=== PATIENT | male | born 1940 | race Caucasian/White ===

== ENCOUNTER 2019-01-04 17:16 | Inpatient (IN) | payer OTHER ==
[~2019-01-04] VITALS: Ht 185.4 cm; Wt 138.2 kg
[~2019-01-04 17:16] MED LIST: ALBU90OI INH; ALBU90OI6 INH; ALLO300 PO; ARTIFICIAL TEA1 EACH BOTHEYES; ASPI81CH PO; ATEN25 PO; ATOR10 PO; AZIT250 PO; Aspir 8181 MG PO; Bactrim Ds Tab1 EACH PO; CLOM50A PO; COLCHICINE0.6 MG PO; CYCL10; Coumadin3 MG PO; Coumadin6 MG PO; Cyclobenzaprine5 MG PO; ERGO400 PO; FINA5 PO; FLUSAL2505 IH; FURO20 PO; GLIP10ER PO; GLIP5 PO; Glucosamine H1500 MG PO; IBUP400 PO; INSUGL100V; ISOMON60ER PO; Isosorbide Mono60 MG PO; LEVFLO500 PO; LEVSOD100 PO; LEVSOD112 PO; LISI5 PO; Lantus100 UNIT/1 SQ; METF500 PO; METO50ER PO; MULVITB PO; MULVITMIND PO; OMEP20ER PO; OMEP40CA12 PO; OXYACE5T PO; PRED20 PO; Percocet 5-3251 EACH PO; Prilosec Otc20 MG; STIOLTO RESPIMAT4 GM INH; Sulfamethoxazo1 EAC4 PO; TAMS.4ER PO; TAMSULOSIN HCL0.4 MG PO; TIOT18 IH; TORSE20 PO; Vitamin C100 M1 PO; WARF4 PO; WARF6 PO; XARALTO
[2019-01-04] MEDS ORDERED: FISH OIL 1,001000 MG PO (19:02)
[2019-01-04] MEDS ORDERED: DULERA 200 MCG/13 GM INH (19:02)
[2019-01-04] MEDS ORDERED: Fergon240 M1 PO (19:03)
[2019-01-04 20:10] LABS: Percent Saturation 8.3 % (20.0-50.0)
[2019-01-04] MEDS ORDERED: MUSE500 MCG UR (20:53)
[2019-01-04] MEDS ORDERED: DOCU100 PO (20:54)
[2019-01-04] MEDS ORDERED: EQ GENTLE30 ML BOTHEYES (20:57)
[2019-01-04] MEDS ORDERED: WARF6 PO (21:02)
[2019-01-05 02:06] LABS: BASOPHILS ABSOLUTE AUTO 0.06 K/mm3 (0.00-0.23); BASOPHILS PERCENT AUTO 1 % (0-2); EOSINOPHILS ABSOLUTE AUTO 0.25 K/mm3 (0.00-0.68); EOSINOPHILS PERCENT AUTO 3 % (0-6); Hematocrit 24.8 % (37.0-53.0); Hemoglobin 8.1 g/dL (13.5-17.5); IMMATURE GRAN ABSOLUTE AUTO 0.03 K/mm3 (0.00-0.10); IMMATURE GRAN PERCENT AUTO 0 % (0-1); LYMPHOCYTES ABSOLUTE AUTO 0.75 K/mm3 (0.84-5.20); LYMPHOCYTES PERCENT AUTO 9 % (21-46); MONOCYTES ABSOLUTE AUTO 0.58 K/mm3 (0.16-1.47); MONOCYTES PERCENT AUTO 7 % (4-13); Mean Corpuscular HGB 29.1 pg (26.0-34.0); Mean Corpuscular HGB Conc 32.7 g/dL (31.5-36.5); Mean Corpuscular Volume 89 fL (80-100); Mean Platelet Volume 11.3 fL (9.1-12.4); NEUTROPHILS ABSOLUTE AUTO 7.07 K/mm3 (1.96-9.15); NEUTROPHILS PERCENT AUTO 81 % (41-73); Platelet Count 124 K/mm3 (150-400); RDW Standard Deviation 66.1 fL (35.1-46.3); Red Blood Cell Count 2.78 M/mm3 (4.30-5.90); White Blood Cell Count 8.74 K/mm3 (4.00-11.30)
[2019-01-05 02:22] LABS: Bun/Creatinine Ratio 20.3 (12.0-20.0); Calcium, Blood 8.4 mg/dL (8.5-10.1); Creatinine, Blood 4.97 mg/dL (0.60-1.20); Potassium, Blood 4.3 mmol/L (3.5-5.5)
[2019-01-05 02:34] LABS: Source, Urine Clean Catch
[2019-01-05 02:40] LABS: Bilirubin, Urine Neg (Neg); Blood, Urine Neg (Neg); Glucose Qualitative, Urine Neg (Neg); Ketones, Urine Neg (Neg); Leukocyte Esterase, Urine Neg (Neg); Nitrite, Urine Neg (Neg); Protein, Urine 1+ (Neg); Specific Gravity, Urine 1.015 (1.003-1.022); Urobilinogen, Urine NORM (Normal)
[2019-01-05 02:41] LABS: Appearance, Urine Clear (Clear); Color, Urine Yellow (P-Yellow)
--- NOTE | 2019-01-05 05:54 | NUR ---
*SHIFT SUMMARY* PATIENT ARRIVED TO ROOM FROM ER VIA GURNEY. PATIENT STOOD AND TRANSFERED TO BED. PATIENT ON ROOM AIR. PT PLACED ON TELEMETRY. RHYTHM- AFIB IN THE 70'S PER MACHINE TRACER. PATIENT IS ALERT AND ORIENTED. SLEPT AT BEDSIDE. PLAN IS FOR PT TO HAVE ULTRASOUND/ ECHO/ AND CHEST XRAY TODAY. CONSULT CALLED FOR DR. SALINAS. NO C/O PAIN THROUGHOUT THE NIGHT. PT BROUGHT HOME C-PAP. CONTINUOUS PULSE OXIMETER ON. SCD'S ON PT. VITAL SIGNS STABLE. PT IS ACHS WITH SLIDING SCALE COVERAGE. PT STATES HE DOES NOT USE INSULIN AT HOME TO CORRECT BLOOD SUGARS. SOB WITH EXERTION IS NOTED. URINE SAMPLE SENT FOR [facility].
[2019-01-05 08:19] LABS: International Normalized Ratio 3.18; Prothrombin Time Results 30.3 Sec (9.7-11.5)
--- NOTE | 2019-01-05 11:22 | NUR ---
ECHOCARDIOGRAM COMPLETED
[2019-01-05 14:48] LABS: Adenovirus Not Detected (NOT DETECT); Bordetella pertussis Not Detected (NOT DETECT); Chlamydophila pneumoniae Not Detected (NOT DETECT); Coronavirus 229E Not Detected (NOT DETECT); Coronavirus HKU1 Not Detected (NOT DETECT); Coronavirus NL63 Not Detected (NOT DETECT); Coronavirus OC43 Not Detected (NOT DETECT); Human Metapneumovirus Not Detected (NOT DETECT); Human Rhinovirus/Enterovirus Not Detected (NOT DETECT); Influenza A Not Detected (NOT DETECT); Influenza A/2009-H1 Not Detected (NOT DETECT); Influenza A/H1 Not Detected (NOT DETECT); Influenza A/H3 Not Detected (NOT DETECT); Influenza B Not Detected (NOT DETECT); Mycoplasma pneumoniae Not Detected (NOT DETECT); Parainfluenza Virus 1 Not Detected (NOT DETECT); Parainfluenza Virus 2 Not Detected (NOT DETECT); Parainfluenza Virus 3 Not Detected (NOT DETECT); Parainfluenza Virus 4 Not Detected (NOT DETECT); Respiratory Syncytial Virus Not Detected (NOT DETECT)
--- NOTE | 2019-01-05 15:55 | NUR ---
SHIFT SUMMARY PT HAS HAD NO ACUTE CHANGES THIS SHIFT, MEDICATED 1X FOR HEADACHE, NO OTHER COMPLAINTS. RT PLACED PT ON 2L 02 D/T PT REPORTING SOB AND SATS REMAINING ABOUT 90% ON RA. PT BEDRESTING, WILL CONT TO MONITOR UNTIL REPORT GIVEN TO NOC RN.
--- NOTE | 2019-01-06 05:32 | NUR ---
*SHIFT SUMMARY* PATIENT IS ALERT AND ORIENTED. NO COMPLAINTS OF PAIN OR DISCOMFORT. VITAL SIGNS STABLE. TELE ON. C-PAP USED AT NIGHT. SLEPT AT BEDSIDE. INDEPENDENT IN THE ROOM. NO CHANGES THROUGHOUT THE NIGHT.
[2019-01-06 05:49] LABS: BASOPHILS ABSOLUTE AUTO 0.04 K/mm3 (0.00-0.23); BASOPHILS PERCENT AUTO 0 % (0-2); EOSINOPHILS ABSOLUTE AUTO 0.23 K/mm3 (0.00-0.68); EOSINOPHILS PERCENT AUTO 3 % (0-6); Hematocrit 24.6 % (37.0-53.0); Hemoglobin 7.7 g/dL (13.5-17.5); IMMATURE GRAN ABSOLUTE AUTO 0.03 K/mm3 (0.00-0.10); IMMATURE GRAN PERCENT AUTO 0 % (0-1); LYMPHOCYTES ABSOLUTE AUTO 0.61 K/mm3 (0.84-5.20); LYMPHOCYTES PERCENT AUTO 7 % (21-46); MONOCYTES ABSOLUTE AUTO 0.56 K/mm3 (0.16-1.47); MONOCYTES PERCENT AUTO 6 % (4-13); Mean Corpuscular HGB 28.9 pg (26.0-34.0); Mean Corpuscular HGB Conc 31.3 g/dL (31.5-36.5); Mean Platelet Volume 10.9 fL (9.1-12.4); NEUTROPHILS ABSOLUTE AUTO 7.58 K/mm3 (1.96-9.15); NEUTROPHILS PERCENT AUTO 84 % (41-73); Platelet Count 117 K/mm3 (150-400); RDW Coefficient Variation 20.4 % (11.7-14.2); RDW Standard Deviation 68.2 fL (35.1-46.3); Red Blood Cell Count 2.66 M/mm3 (4.30-5.90); White Blood Cell Count 9.05 K/mm3 (4.00-11.30)
[2019-01-06 05:59] LABS: Mean Corpuscular Volume 93 fL (80-100)
[2019-01-06 06:12] LABS: Albumin, Blood 2.9 g/dL (3.4-5.0); Anion Gap 11 mmol/L (6-16); Blood Urea Nitrogen 101 mg/dL (8-24); CO2, Blood 21 mmol/L (21-32); CPK Creatine Kinase 30 U/L (39-308); Calcium, Blood 8.8 mg/dL (8.5-10.1); Chloride, Blood 108 mmol/L (98-108); Creatinine, Blood 5.06 mg/dL (0.60-1.20); Glomerular Filtration Rate 12 (60-); Glucose, Blood 112 mg/dL (70-99); Phosphorus, Blood 5.7 mg/dL (2.5-4.9); Potassium, Blood 4.6 mmol/L (3.5-5.5); Sodium, Blood 140 mmol/L (136-145)
[2019-01-06 13:40] LABS: International Normalized Ratio 3.14
--- NOTE | 2019-01-06 15:04 | NUR ---
Patient gave permission for SN Ritu Aguirre to work with him on 01/07/19
--- NOTE | 2019-01-06 18:18 | NUR ---
SHIFT SUMMARY SURGICAL CONSULT PLACED FOR PERMA CATH PLACEMENT. PATIENT AWARE OF NEED FOR DIALYSIS. ABLE TO MAKE HIS NEEDS KNOWN. CONTINUES TO REQUIRE O2 DURING THE DAY. AND ANIMALS AT BEDSIDE.
--- NOTE | 2019-01-06 22:42 | NUR ---
2001 ADL'S: 3 DOGS SENT HOME WIHT FAMILY FOR NOC. PT UP TO RECLINER AND PT'S HELPS HIM TO COMPLETE BEDBATH WHILE SAND WHEELER COMPLETES LINEN CHANGES. ONCE PERSONAL CARE HAS BEEN COMPLETED PT REPOSITIONS SELF BACK IN BED WITH SBA FROM STAFF. RN SHAVES CHEST WITH SURGICAL CLIPPERS AND COMPLETES CHLORHEXIDINE WIPES BATH TO CHEST, NECK, SHOULDERS AND ARMS IN ANTICIPATION OF PERMACATH PLACEMENT ON 01/07/19. HOUSEKEEPING CALLED OT ROOM TO COMPLETE DAILY CLEAN AND MOP WELL.
[2019-01-07 05:43] LABS: BASOPHILS ABSOLUTE AUTO 0.05 K/mm3 (0.00-0.23); BASOPHILS PERCENT AUTO 1 % (0-2); EOSINOPHILS ABSOLUTE AUTO 0.42 K/mm3 (0.00-0.68); EOSINOPHILS PERCENT AUTO 5 % (0-6); Hematocrit 25.1 % (37.0-53.0); Hemoglobin 8.1 g/dL (13.5-17.5); IMMATURE GRAN ABSOLUTE AUTO 0.05 K/mm3 (0.00-0.10); IMMATURE GRAN PERCENT AUTO 1 % (0-1); LYMPHOCYTES ABSOLUTE AUTO 0.88 K/mm3 (0.84-5.20); LYMPHOCYTES PERCENT AUTO 10 % (21-46); MONOCYTES ABSOLUTE AUTO 0.72 K/mm3 (0.16-1.47); MONOCYTES PERCENT AUTO 8 % (4-13); Mean Corpuscular HGB 28.8 pg (26.0-34.0); Mean Corpuscular HGB Conc 32.3 g/dL (31.5-36.5); Mean Platelet Volume 10.7 fL (9.1-12.4); NEUTROPHILS ABSOLUTE AUTO 6.86 K/mm3 (1.96-9.15); NEUTROPHILS PERCENT AUTO 76 % (41-73); NRBC ABSOLUTE 0.02 K/mm3 (0.00-0.02); NRBC Auto 0.2 /100 WBC (0.0-0.2); Platelet Count 138 K/mm3 (150-400); RDW Coefficient Variation 20.3 % (11.7-14.2); RDW Standard Deviation 65.6 fL (35.1-46.3); Red Blood Cell Count 2.81 M/mm3 (4.30-5.90); White Blood Cell Count 8.98 K/mm3 (4.00-11.30)
--- NOTE | 2019-01-07 06:00 | NUR ---
SUMMARY: ADMIT DAY 4 ACUTE KIDNEY INJURY ON HOSPITALIST SERVICE FROM [facility]. VSS, AFEBRILE, MAINTAINS SPO2 >90% ON 2L O2 VIA NC WITH HOME CPAP @ NOC. ADL'S COMPLETED. ANTICIPATE SURGICAL CONSULT TODAY AND PROBABLE PERMACATH PLACEMENT BY DR. YANG. CHEST AND TORSO PREPPED FOR SURGERY IN ANTICIPATION. PT ENCOURAGED TO EAT LIGHT BREAKFAST IN CASE OF SURGICAL PROCEDURE LATER THIS DAY. REMAINS AT BEDSIDE.
[2019-01-07 06:01] LABS: Anion Gap 11 mmol/L (6-16); Blood Urea Nitrogen 100 mg/dL (8-24); Bun/Creatinine Ratio 20.6 (12.0-20.0); CO2, Blood 21 mmol/L (21-32); Calcium, Blood 8.6 mg/dL (8.5-10.1); Chloride, Blood 106 mmol/L (98-108); Creatinine, Blood 4.85 mg/dL (0.60-1.20); Glomerular Filtration Rate 12 (60-); Glucose, Blood 92 mg/dL (70-99); Mean Corpuscular Volume 89 fL (80-100); Phosphorus, Blood 5.6 mg/dL (2.5-4.9); Potassium, Blood 4.3 mmol/L (3.5-5.5); Sodium, Blood 138 mmol/L (136-145)
[2019-01-07 06:03] LABS: International Normalized Ratio 1.75; Prothrombin Time Results 17.6 Sec (9.7-11.5)
[2019-01-07 07:13] LABS: HBSAG SCREEN Negative (Negative); HEP B CORE AB, TOT Negative (Negative); HEP C VIRUS AB <0.1 (0.0-0.9)
--- NOTE | 2019-01-07 12:58 | NUR ---
PATIENT A&O X4. RN MEDICATED X1 FOR A HEADACHE. PATIENT DENIES ANY SOB OR NAUSEA. AT THE BEDSIDE. NO ACUTE CHANGES. RN GAVE REPORT TO NURSE MARTINEZ.
--- NOTE | 2019-01-07 15:38 | NUR ---
SHIFT SUMMARY PATIENT IS EAGER FOR SURGERY ON 01/08. NPO AT MIDNIGHT. NO ACUTE ISSUES NOTED.
--- NOTE | 2019-01-08 04:32 | NUR ---
NOC SHIFT SUMMARY PT HAS BEEN COOPERATIVE WITH CARE THIS NIGHT. AAOX4, RESP EVEN AND UNLABORED. VSS. HE HAS BEEN NPO SINCE MIDNIGHT. CURRENTLY SLEEPING. NOT ACUTE CHANGES SEEN. APPEARS IN NO ACUTE DISTRESS. WILL CONTINUE TO MONITOR.
[2019-01-08 05:32] LABS: BASOPHILS ABSOLUTE AUTO 0.07 K/mm3 (0.00-0.23); BASOPHILS PERCENT AUTO 1 % (0-2); EOSINOPHILS ABSOLUTE AUTO 0.39 K/mm3 (0.00-0.68); EOSINOPHILS PERCENT AUTO 4 % (0-6); Hematocrit 23.7 % (37.0-53.0); Hemoglobin 7.6 g/dL (13.5-17.5); IMMATURE GRAN ABSOLUTE AUTO 0.06 K/mm3 (0.00-0.10); IMMATURE GRAN PERCENT AUTO 1 % (0-1); LYMPHOCYTES ABSOLUTE AUTO 0.67 K/mm3 (0.84-5.20); LYMPHOCYTES PERCENT AUTO 7 % (21-46); MONOCYTES ABSOLUTE AUTO 0.74 K/mm3 (0.16-1.47); MONOCYTES PERCENT AUTO 7 % (4-13); Mean Corpuscular HGB 28.5 pg (26.0-34.0); Mean Corpuscular HGB Conc 32.1 g/dL (31.5-36.5); Mean Corpuscular Volume 89 fL (80-100); Mean Platelet Volume 11.1 fL (9.1-12.4); NEUTROPHILS ABSOLUTE AUTO 8.08 K/mm3 (1.96-9.15); NEUTROPHILS PERCENT AUTO 81 % (41-73); Platelet Count 137 K/mm3 (150-400); RDW Coefficient Variation 20.6 % (11.7-14.2); RDW Standard Deviation 67.1 fL (35.1-46.3); Red Blood Cell Count 2.67 M/mm3 (4.30-5.90); White Blood Cell Count 10.01 K/mm3 (4.00-11.30)
[2019-01-08 05:50] LABS: International Normalized Ratio 1.36
[2019-01-08 06:05] LABS: Albumin, Blood 2.9 g/dL (3.4-5.0); Anion Gap 11 mmol/L (6-16); Blood Urea Nitrogen 104 mg/dL (8-24); Bun/Creatinine Ratio 21.5 (12.0-20.0); CO2, Blood 22 mmol/L (21-32); Calcium, Blood 8.6 mg/dL (8.5-10.1); Chloride, Blood 104 mmol/L (98-108); Creatinine, Blood 4.83 mg/dL (0.60-1.20); Glomerular Filtration Rate 13 (60-); Glucose, Blood 129 mg/dL (70-99); Phosphorus, Blood 5.4 mg/dL (2.5-4.9); Potassium, Blood 4.4 mmol/L (3.5-5.5); Sodium, Blood 137 mmol/L (136-145)
--- NOTE | 2019-01-08 07:21 | NUR ---
PT WITH VENETIAN BLIND WORKER ASSISTING IN PREOPERATIVE CARE. AGREE WITH HER CHARTING AND CARE. DUONEB GIVEN PER ANETHESIA. LUNGS DECREASED T/O
--- NOTE | 2019-01-08 07:34 | NUR ---
PATIENT GAVE PERMISSION FOR ME TO CARE FOR HIM TODAY 01/08/19. History, Chart, Medications and Allergies reviewed before start of procedure.Patient confirms NPO status and agrees with scheduled surgery. Surgical site prepped with 2% Chlorhexidine cloth wipe.
--- NOTE | 2019-01-08 09:40 | NUR ---
Patient gave mem permission to care for him on 01/08/2019
--- NOTE | 2019-01-08 14:08 | NUR ---
PATIENT WENT DOWN TO DIALYSIS VIA STRETCHER.
[2019-01-08 15:06] LABS: A/G RATIO 1.1 (0.7-1.7); ALBUMIN 3.1 g/dL (2.9-4.4); ALPHA-1-GLOBULIN 0.3 g/dL (0.0-0.4); ALPHA-2-GLOBULIN 0.6 g/dL (0.4-1.0); BETA GLOBULIN 0.9 g/dL (0.7-1.3); GAMMA GLOBULIN 1.2 g/dL (0.4-1.8); IMMUNOGLOBULIN A, QN, SERUM 258 mg/dL (61-437); IMMUNOGLOBULIN G, QN, SERUM 1117 mg/dL (700-1600); IMMUNOGLOBULIN M, QN, SERUM 29 mg/dL (15-143); M-SPIKE Not Observed g/dL (Not Observed); PROTEIN, TOTAL, SERUM 6.1 g/dL (6.0-8.5)
--- NOTE | 2019-01-08 18:37 | NUR ---
SHIFT SUMMARY PATIENT HAD PERMA CATH PLACED. WENT OUT FOR DIALYSIS AND TOLERATED THIS ALL WELL. PATIENT IS CURRENTLY LAYING IN BED. AT BEDSIDE. NO ACUTE CHANGES NOTED. STATES THAT DIALYSIS WENT VERY WELL. COMFORTABLE WITH THIS CHANGE IN THIER DAILY ROUTINE.
[2019-01-09 05:05] LABS: BASOPHILS ABSOLUTE AUTO 0.05 K/mm3 (0.00-0.23); BASOPHILS PERCENT AUTO 1 % (0-2); EOSINOPHILS ABSOLUTE AUTO 0.32 K/mm3 (0.00-0.68); EOSINOPHILS PERCENT AUTO 4 % (0-6); Hematocrit 24.7 % (37.0-53.0); Hemoglobin 7.9 g/dL (13.5-17.5); IMMATURE GRAN ABSOLUTE AUTO 0.05 K/mm3 (0.00-0.10); IMMATURE GRAN PERCENT AUTO 1 % (0-1); LYMPHOCYTES ABSOLUTE AUTO 0.66 K/mm3 (0.84-5.20); LYMPHOCYTES PERCENT AUTO 8 % (21-46); MONOCYTES ABSOLUTE AUTO 0.63 K/mm3 (0.16-1.47); MONOCYTES PERCENT AUTO 7 % (4-13); Mean Corpuscular HGB 28.9 pg (26.0-34.0); Mean Corpuscular Volume 91 fL (80-100); Mean Platelet Volume 10.2 fL (9.1-12.4); NEUTROPHILS ABSOLUTE AUTO 6.89 K/mm3 (1.96-9.15); NEUTROPHILS PERCENT AUTO 80 % (41-73); NRBC ABSOLUTE 0.02 K/mm3 (0.00-0.02); NRBC Auto 0.2 /100 WBC (0.0-0.2); Platelet Count 130 K/mm3 (150-400); RDW Coefficient Variation 19.7 % (11.7-14.2); RDW Standard Deviation 63.9 fL (35.1-46.3); Red Blood Cell Count 2.73 M/mm3 (4.30-5.90)
[2019-01-09 05:35] LABS: Albumin, Blood 2.8 g/dL (3.4-5.0); Anion Gap 9 mmol/L (6-16); Blood Urea Nitrogen 74 mg/dL (8-24); Bun/Creatinine Ratio 18.8 (12.0-20.0); CO2, Blood 27 mmol/L (21-32); Calcium, Blood 8.2 mg/dL (8.5-10.1); Chloride, Blood 101 mmol/L (98-108); Creatinine, Blood 3.93 mg/dL (0.60-1.20); Glomerular Filtration Rate 16 (60-); Glucose, Blood 158 mg/dL (70-99); Phosphorus, Blood 5.1 mg/dL (2.5-4.9); Potassium, Blood 4.1 mmol/L (3.5-5.5); Sodium, Blood 137 mmol/L (136-145)
--- NOTE | 2019-01-09 05:49 | NUR ---
Rn summary: Patient is alert and oriented. has been at bedside. Pt was medicated with 5mg oxy for headache behind eye which he states he gets daily, pain described as 9/10. Pt did have good relief with pain med. Pt does have occ dry cough. Pt states he kept dropping down with biox to 88%, home bipap applied with 3 liters bleed in and pt sats have been running 94%. Pt with permacath placed yesterday. Area with drsg that has some dried blood, dialysis state to no change drsg. Pt states plan is for dialysis again today. Pt reports no BM x1 wk. Medicated with mirlax this am. Vital signs have been stable. Call light in reach.
[2019-01-09 09:08] LABS: International Normalized Ratio 1.38; Prothrombin Time Results 14.2 Sec (9.7-11.5)
--- NOTE | 2019-01-09 09:15 | NUR ---
DIALYSIS PT TAKEN TO THE DIALYSIS ROOM, A/OX3, APPEARED TO BE BREATHING EASILY ON RA AT THIS TIME, FAMILY IS WITH THE PT
[2019-01-09 13:12] LABS: Hematocrit 26.3 % (37.0-53.0); Hemoglobin 8.4 g/dL (13.5-17.5)
--- NOTE | 2019-01-09 16:42 | NUR ---
PT A/OX3, PLEASANT AND COOPERATIVE, THE PT IS UP WITH MINIMAL ASSIST TO THE CHAIR, THE PT DENIED ANY PAIN THIS SHIFT SO FAR, THE PT WAS GIVEN DIALYSIS TODAY AND SEEMED TO TOLERATE IT WELL, THE PT APPEARED TO BE BREATHING EASILY ON RA AT REST, THE PTS FAMILY IS AT THE BEDSIDE T/O THE DAY, CALL LIGHT IN REACH, NO OTHER CHANGES NOTICED THIS SHIFT
--- NOTE | 2019-01-09 18:38 | NUR ---
OFFERED TO ASSIST THE PT FOR A WALK THE PT WAS UP IN THE ROOM TO THE BATHROOM, HE DECLINED TO GO FOR A WALK INTO THE EDWARDS AT THIS TIME, REPORTED THAT HIS KNEES WERE TO SORE AND WEAK TO WALK ANY DISTANCE AT THIS TIME
--- NOTE | 2019-01-10 04:41 | NUR ---
78 Y/O MALE RESTED COMFORTABLY ALL EVENING WHILE WEARING O2 AT 2L/M PER NASAL CANNULA. PTS TELEMETRY REFLECTS A/FIB. PT DENIES NAUSEA OR PAIN. PTS BED LOW POSITION, CALL LIGHT AT SIDE.
[2019-01-10 05:44] LABS: BASOPHILS ABSOLUTE AUTO 0.07 K/mm3 (0.00-0.23); BASOPHILS PERCENT AUTO 1 % (0-2); EOSINOPHILS ABSOLUTE AUTO 0.44 K/mm3 (0.00-0.68); EOSINOPHILS PERCENT AUTO 5 % (0-6); Hematocrit 25.3 % (37.0-53.0); Hemoglobin 8.1 g/dL (13.5-17.5); IMMATURE GRAN ABSOLUTE AUTO 0.06 K/mm3 (0.00-0.10); IMMATURE GRAN PERCENT AUTO 1 % (0-1); LYMPHOCYTES ABSOLUTE AUTO 0.83 K/mm3 (0.84-5.20); LYMPHOCYTES PERCENT AUTO 10 % (21-46); MONOCYTES ABSOLUTE AUTO 0.75 K/mm3 (0.16-1.47); MONOCYTES PERCENT AUTO 9 % (4-13); Mean Corpuscular HGB 28.8 pg (26.0-34.0); Mean Corpuscular Volume 90 fL (80-100); Mean Platelet Volume 11.1 fL (9.1-12.4); NEUTROPHILS ABSOLUTE AUTO 6.43 K/mm3 (1.96-9.15); NEUTROPHILS PERCENT AUTO 75 % (41-73); NRBC ABSOLUTE 0.03 K/mm3 (0.00-0.02); NRBC Auto 0.3 /100 WBC (0.0-0.2); Platelet Count 139 K/mm3 (150-400); RDW Coefficient Variation 19.9 % (11.7-14.2); RDW Standard Deviation 64.2 fL (35.1-46.3); Red Blood Cell Count 2.81 M/mm3 (4.30-5.90); White Blood Cell Count 8.58 K/mm3 (4.00-11.30)
[2019-01-10 05:48] LABS: International Normalized Ratio 1.47
[2019-01-10 05:51] LABS: Albumin, Blood 2.7 g/dL (3.4-5.0); Anion Gap 7 mmol/L (6-16); Blood Urea Nitrogen 54 mg/dL (8-24); Bun/Creatinine Ratio 15.9 (12.0-20.0); CO2, Blood 30 mmol/L (21-32); Calcium, Blood 8.5 mg/dL (8.5-10.1); Chloride, Blood 102 mmol/L (98-108); Creatinine, Blood 3.39 mg/dL (0.60-1.20); Glomerular Filtration Rate 19 (60-); Glucose, Blood 126 mg/dL (70-99); Phosphorus, Blood 4.7 mg/dL (2.5-4.9); Sodium, Blood 139 mmol/L (136-145)
[2019-01-10] MEDS ORDERED: METO25ER PO (12:17)
[2019-01-10] MEDS ORDERED: TYLENOL325 MG PO (12:22)
[2019-01-10] MEDS ORDERED: AMOCLA500 PO (12:28)
[2019-01-10] MEDS ORDERED: MIRALAX17 GM PO (12:28)
[2019-01-10] MEDS ORDERED: SACC250C PO (12:29)
--- NOTE | 2019-01-10 15:55 | NUR ---
PT DISCHARGED AROUND 1300 PT AND VERBALIZED UNDERSTANDING OF THE DC INSTRUCTIONS, PERSRIPTIONS [facility], THE PT APEEARED TO BE BREATHING EASILY ON OXYGEN @ 3L/MIN AT THE TIME OF DISCHARGE, BELONGINS RELEASED TO THE PT, THE PT WAS TRANSFERED VIA WHEELCHAIR ACCOMPANIED BY THE SN AND HIS , A/OX3
== END 2019-01-10 14:39 | disposition home or self-care (01) | DRG 682 ==
LOC: ER 17:16 → MEDS 20:02 → ENPENDDIS 01-10 10:02 → MEDS 01-10 14:39
PROVIDERS: Internal Medicine; Surgery; ADMIT Family Medicine
PROC: 5A1D70Z Performance of Urinary Filtration, Intermittent, Less than 6 Hours Per Day (ICD-10-PCS; 2019-01-08)
PROC: 30233N1 Transfusion of Nonautologous Red Blood Cells into Peripheral Vein, Percutaneous Approach (ICD-10-PCS; 2019-01-08)
PROC: 05HM33Z Insertion of Infusion Device into Right Internal Jugular Vein, Percutaneous Approach (ICD-10-PCS; principal; 2019-01-08 07:30)
PROC: 5A1D70Z Performance of Urinary Filtration, Intermittent, Less than 6 Hours Per Day (ICD-10-PCS; 2019-01-09)
DX: N17.9 Acute kidney failure, unspecified (principal); I50.41 Acute combined systolic (congestive) and diastolic (congestive) heart failure; J18.1 Lobar pneumonia, unspecified organism; J96.01 Acute respiratory failure with hypoxia; I13.2 Hypertensive heart and chronic kidney disease with heart failure and with stage 5 chronic kidney disease, or end stage renal disease; I42.9 Cardiomyopathy, unspecified; N18.6 End stage renal disease; E11.22 Type 2 diabetes mellitus with diabetic chronic kidney disease; Z99.2 Dependence on renal dialysis; D63.1 Anemia in chronic kidney disease; I48.91 Unspecified atrial fibrillation; E78.5 Hyperlipidemia, unspecified; N40.0 Benign prostatic hyperplasia without lower urinary tract symptoms; J44.9 Chronic obstructive pulmonary disease, unspecified; G47.33 Obstructive sleep apnea (adult) (pediatric); I25.10 Atherosclerotic heart disease of native coronary artery without angina pectoris; E11.42 Type 2 diabetes mellitus with diabetic polyneuropathy; E03.9 Hypothyroidism, unspecified; Z79.01 Long term (current) use of anticoagulants; Z87.891 Personal history of nicotine dependence; E66.01 Morbid (severe) obesity due to excess calories; D69.6 Thrombocytopenia, unspecified; M10.9 Gout, unspecified; K59.00 Constipation, unspecified; Z99.81 Dependence on supplemental oxygen
CPT/HCPCS: 36415; 36430; 71046; 76770; 77001; 80048; 80069; 82550; 82607; 82728; 82746; 82784; 82947; 83010; 83540; 83550; 83615; 83880; 84145; 84165; 84484; 85014; 85018; 85025; 85610; 86317; 86334; 86704; 86708; 86803; 86850; 86900; 86901; 86923; 87340; 87486; 87581; 87633; 87798; 93306; 94640; 94660; 94761; 94762; 99285; C1750; J0456; J0696; J0881; J1644; J1940; J2250; J2370; J2405; J2704; J3010; J3430; J7030; J7050; P9016

== ENCOUNTER → 2019-01-20 | Outpatient (CLI) | payer OTHER ==
[~2019-01-20] MED LIST changes: +AMOCLA500 PO; +DOCU100 PO; +DULERA 200 MCG/13 GM INH; +EQ GENTLE30 ML BOTHEYES; +FISH OIL 1,001000 MG PO; +Fergon240 M1 PO; +METO25ER PO; +MIRALAX17 GM PO; +MUSE500 MCG UR; +SACC250C PO; +TYLENOL325 MG PO
[2019-01-21 15:31] LABS: Hematocrit 27.5 % (37.0-53.0); Hemoglobin 8.5 g/dL (13.5-17.5)
[2019-01-21 16:13] LABS: Albumin, Blood 3.2 g/dL (3.4-5.0); Anion Gap 5 mmol/L (6-16); Blood Urea Nitrogen 34 mg/dL (8-24); Bun/Creatinine Ratio 9.5 (12.0-20.0); CO2, Blood 30 mmol/L (21-32); Calcium, Blood 8.5 mg/dL (8.5-10.1); Chloride, Blood 102 mmol/L (98-108); Creatinine, Blood 3.59 mg/dL (0.60-1.20); Glomerular Filtration Rate 18 (60-); Glucose, Blood 120 mg/dL (70-99); Phosphorus, Blood 3.6 mg/dL (2.5-4.9); Sodium, Blood 137 mmol/L (136-145)
== END | disposition home or self-care (01) ==
LOC: LAB SHORT 15:20 → LAB 15:20
PROVIDERS: Internal Medicine
DX: N18.6 End stage renal disease (principal)
CPT/HCPCS: 80069; 85014; 85018

== ENCOUNTER 2019-01-28 21:53 | Observation (INO) | payer OTHER ==
[~2019-01-28] VITALS: Ht 190.5 cm; Wt 125.5 kg
[~2019-01-28 21:53] MED LIST changes: +ALLO100 PO; -ALLO300 PO; +Isosorbide Mono30 MG PO; -Isosorbide Mono60 MG PO
[2019-01-28 22:46] LABS: BASOPHILS PERCENT AUTO 2 % (0-2); EOSINOPHILS ABSOLUTE AUTO 0.34 K/mm3 (0.00-0.68); EOSINOPHILS PERCENT AUTO 5 % (0-6); Hematocrit 28.8 % (37.0-53.0); Hemoglobin 9.2 g/dL (13.5-17.5); IMMATURE GRAN ABSOLUTE AUTO 0.04 K/mm3 (0.00-0.10); IMMATURE GRAN PERCENT AUTO 1 % (0-1); LYMPHOCYTES ABSOLUTE AUTO 1.03 K/mm3 (0.84-5.20); LYMPHOCYTES PERCENT AUTO 16 % (21-46); MONOCYTES ABSOLUTE AUTO 0.63 K/mm3 (0.16-1.47); MONOCYTES PERCENT AUTO 10 % (4-13); Mean Corpuscular HGB 30.4 pg (26.0-34.0); Mean Corpuscular HGB Conc 31.9 g/dL (31.5-36.5); Mean Corpuscular Volume 95 fL (80-100); Mean Platelet Volume 10.4 fL (9.1-12.4); NEUTROPHILS ABSOLUTE AUTO 4.13 K/mm3 (1.96-9.15); NEUTROPHILS PERCENT AUTO 66 % (41-73); Platelet Count 180 K/mm3 (150-400); RDW Coefficient Variation 21.2 % (11.7-14.2); RDW Standard Deviation 73.3 fL (35.1-46.3); Red Blood Cell Count 3.03 M/mm3 (4.30-5.90); White Blood Cell Count 6.27 K/mm3 (4.00-11.30)
[2019-01-28 22:48] LABS: Troponin I <0.015 ng/mL (0.000-0.040)
[2019-01-28 22:49] LABS: Alanine Aminotransfer (ALT/SGP 16 U/L (12-78); Albumin, Blood 3.2 g/dL (3.4-5.0); Albumin/Globulin Ratio 0.8 (0.8-1.8); Alk Phos 156 U/L (50-136); Anion Gap 4 mmol/L (6-16); Aspartate Aminotrans (AST/SGOT 22 U/L (12-37); Bilirubin, Total 1.5 mg/dL (0.1-1.0); Blood Urea Nitrogen 20 mg/dL (8-24); Bun/Creatinine Ratio 8.7 (12.0-20.0); CO2, Blood 34 mmol/L (21-32); Calcium, Blood 8.5 mg/dL (8.5-10.1); Chloride, Blood 99 mmol/L (98-108); Creatinine, Blood 2.31 mg/dL (0.60-1.20); Globulin, Blood 4.2 g/dL (2.2-4.0); Glomerular Filtration Rate 29 (60-); Glucose, Blood 96 mg/dL (70-99); Sodium, Blood 137 mmol/L (136-145); Total Protein, Blood 7.4 g/dL (6.4-8.2)
[2019-01-29 01:12] LABS: International Normalized Ratio 2.11; Prothrombin Time Results 20.9 Sec (9.7-11.5)
--- NOTE | 2019-01-29 01:48 | NUR ---
[id number] ADMIT: SINGLE WIRE SAW OPERATOR ARRIVES TO PCU 15 WITH AND CHILDREN AT BEDSIDE. PT TRANSFERS SELF TO BED WITH SBA AND APPEARS STEADY ON FEET. PT AND FAMILY ORIENTED TO ROOM, BED, CALL SYSTEM. PT STATES CHEST PAIN IS CURRENTLY A TIGHTNESS AND PRESSURE IN LEFT SIDE OF CHEST AND IS SLOWLY MIGRATED ACROSS CHEST TO RIGHT SIDE WELL AT THE NIPPLE LINE. STATES SOB IS SOMEWHAT INCREASED FROM BASELINE THE LAST WEEK AND HE HAS HAD THICK YELLOW SPUTUM THAT IS PINK TINGED.
[2019-01-29 04:36] LABS: BASOPHILS ABSOLUTE AUTO 0.08 K/mm3 (0.00-0.23); BASOPHILS PERCENT AUTO 1 % (0-2); EOSINOPHILS ABSOLUTE AUTO 0.33 K/mm3 (0.00-0.68); EOSINOPHILS PERCENT AUTO 5 % (0-6); Hematocrit 28.5 % (37.0-53.0); IMMATURE GRAN ABSOLUTE AUTO 0.03 K/mm3 (0.00-0.10); IMMATURE GRAN PERCENT AUTO 1 % (0-1); LYMPHOCYTES ABSOLUTE AUTO 1.13 K/mm3 (0.84-5.20); LYMPHOCYTES PERCENT AUTO 18 % (21-46); MONOCYTES ABSOLUTE AUTO 0.65 K/mm3 (0.16-1.47); MONOCYTES PERCENT AUTO 10 % (4-13); Mean Corpuscular HGB 30.4 pg (26.0-34.0); Mean Corpuscular HGB Conc 31.6 g/dL (31.5-36.5); Mean Corpuscular Volume 96 fL (80-100); Mean Platelet Volume 11.1 fL (9.1-12.4); NEUTROPHILS ABSOLUTE AUTO 4.13 K/mm3 (1.96-9.15); NEUTROPHILS PERCENT AUTO 65 % (41-73); Platelet Count 170 K/mm3 (150-400); RDW Coefficient Variation 20.8 % (11.7-14.2); RDW Standard Deviation 74.1 fL (35.1-46.3); Red Blood Cell Count 2.96 M/mm3 (4.30-5.90); White Blood Cell Count 6.35 K/mm3 (4.00-11.30)
[2019-01-29 04:51] LABS: Albumin, Blood 3.2 g/dL (3.4-5.0); Anion Gap 5 mmol/L (6-16); Blood Urea Nitrogen 24 mg/dL (8-24); CO2, Blood 32 mmol/L (21-32); Calcium, Blood 8.2 mg/dL (8.5-10.1); Chloride, Blood 100 mmol/L (98-108); Creatinine, Blood 2.67 mg/dL (0.60-1.20); Glomerular Filtration Rate 25 (60-); Glucose, Blood 101 mg/dL (70-99); Phosphorus, Blood 3.4 mg/dL (2.5-4.9); Sodium, Blood 137 mmol/L (136-145)
--- NOTE | 2019-01-29 06:50 | NUR ---
0650: PT TO TRANSFER TO ROOM 328 AFTER ABD ULTRASOUND COMPLETED THIS MORNING; REPORT GIVEN TO DAY RN. PT AND , CHARLEEN, NOTIFIED OF IMPENDING TRANSFER AND VERBALIZE UNDERSTANDING.
--- NOTE | 2019-01-29 07:24 | NUR ---
SUMMARY: NEW ADMIT FOR CP THAT APPEARS WELL CONTROLLED TO TOLERABLE LEVEL 5-6/10 LEFT TO RIGHT ACROSS NIPPLE LINE WITH 4MG MORPHINE IN ER. 3L O2 BASELINE AND VSS. TROPONINS NEGATIVE THUS FAR, WBC WNL. AWAIT RESULTS OF STUDIES AND TRANSFER TO ROOM 328.
--- NOTE | 2019-01-29 07:58 | NUR ---
01/29/19 0745 received from [facility]cu no chest pain alert and oriented . with pt introduction done .. looking for his breakfast.
[2019-01-29] MEDS ORDERED: METO25ER PO (10:08)
[2019-01-29 10:21] LABS: International Normalized Ratio 1.96; Prothrombin Time Results 19.5 Sec (9.7-11.5)
[2019-01-29 13:19] LABS: Adenovirus Not Detected (NOT DETECT); Bordetella pertussis Not Detected (NOT DETECT); Chlamydophila pneumoniae Not Detected (NOT DETECT); Coronavirus 229E Not Detected (NOT DETECT); Coronavirus HKU1 Not Detected (NOT DETECT); Coronavirus NL63 Not Detected (NOT DETECT); Coronavirus OC43 Not Detected (NOT DETECT); Human Metapneumovirus Not Detected (NOT DETECT); Human Rhinovirus/Enterovirus Not Detected (NOT DETECT); Influenza A Not Detected (NOT DETECT); Influenza A/2009-H1 Not Detected (NOT DETECT); Influenza A/H1 Not Detected (NOT DETECT); Influenza A/H3 Not Detected (NOT DETECT); Influenza B Not Detected (NOT DETECT); Mycoplasma pneumoniae Not Detected (NOT DETECT); Parainfluenza Virus 1 Not Detected (NOT DETECT); Parainfluenza Virus 2 Not Detected (NOT DETECT); Parainfluenza Virus 3 Not Detected (NOT DETECT); Parainfluenza Virus 4 Not Detected (NOT DETECT); Respiratory Syncytial Virus Not Detected (NOT DETECT)
--- NOTE | 2019-01-30 04:19 | NUR ---
SHIFT SUMMARY PATIENT HAD NO ACUTE CHANGES OBSERVED THIS SHIFT. DENIES CHEST PAIN, SOB, AND N/V. SPOUSE PRESENT T/O SHIFT. AXO X 3 AND ONE ASSIST TO BR USING URINAL AT BEDSIDE. PIV REMAINS INTACT. FOOT GATHERER REPORTS AFIB AVERAGE 82. CBG 140. ON 3L O2 NC. RT SETUP CPAP THIS SHIFT. VSS/AFEBRILE. DIALYSIS PATIENT WITH PERMA CATH. COOPERATIVE WITH CARE. CALL LIGHT IN REACH. BED IN LOWEST POSITION. WILL CONTINUE TO MONITOR UNTIL DAY SHIFT NURSE ASSUMES CARE.
[2019-01-30 05:39] LABS: Hematocrit 29.6 % (37.0-53.0); Hemoglobin 9.2 g/dL (13.5-17.5); Mean Corpuscular HGB 30.4 pg (26.0-34.0); Mean Corpuscular HGB Conc 31.1 g/dL (31.5-36.5); Mean Corpuscular Volume 98 fL (80-100); Mean Platelet Volume 10.9 fL (9.1-12.4); Platelet Count 158 K/mm3 (150-400); RDW Coefficient Variation 20.7 % (11.7-14.2); Red Blood Cell Count 3.03 M/mm3 (4.30-5.90); White Blood Cell Count 6.59 K/mm3 (4.00-11.30)
[2019-01-30 05:55] LABS: International Normalized Ratio 2.08; Prothrombin Time Results 20.6 Sec (9.7-11.5)
[2019-01-30 06:06] LABS: Anion Gap 6 mmol/L (6-16); Blood Urea Nitrogen 34 mg/dL (8-24); Bun/Creatinine Ratio 10.5 (12.0-20.0); CO2, Blood 30 mmol/L (21-32); Calcium, Blood 8.4 mg/dL (8.5-10.1); Chloride, Blood 101 mmol/L (98-108); Creatinine, Blood 3.25 mg/dL (0.60-1.20); Glomerular Filtration Rate 20 (60-); Glucose, Blood 128 mg/dL (70-99); Phosphorus, Blood 4.5 mg/dL (2.5-4.9); Potassium, Blood 4.5 mmol/L (3.5-5.5); Sodium, Blood 137 mmol/L (136-145)
--- NOTE | 2019-01-30 18:39 | NUR ---
SHIFT SUMMARY RED IS DOING BETTER THIS SHIFT. DENIED PAIN. ON 3L HOME OXYGEN. TELE SHOWED AFIB. SBA. R CHEST HD CATH C/D/I. ON 24 HOUR URINE COLLECTION. HAD CARDIAC STRESS TEST PART ONE TODAY. PROBABLY GOING TO HD TOMORROW. DENIED CHEST PAIN. CBGS NOT REQUIRING INSULIN. WCTM
--- NOTE | 2019-01-31 03:57 | NUR ---
SHIFT SUMMARY PATIENT HAD NO ACUTE CHANGES OBSERVED THIS SHIFT. AXOX 3 AND ONE ASSIST TO BR. TAKES MEDICATION WHOLE WITH WATER. CBG 144. PIV REMAINS INTACT. PRODUCT CONTROL AND LOGISTICS ANALYST REPORTS A-FIB 77. 24 HOUR URINE COLLECTION. STRESS TEST / TODAY AT 13:00 AND NPO 4 HOURS BEFORE PROCEDURE. VSS/AFEBRILE. DENIES PAIN, SOB, AND N/V. PERMA CATH RU CHEST. CPAP AT NIGHT. CALL LIGHT IN REACH. BED IN LOWEST POSITION WILL CONTINUE TO MONITOR UNTIL DAY SHIFT NURSE ASSUMES CARE.
[2019-01-31 05:55] LABS: International Normalized Ratio 2.09; Prothrombin Time Results 20.7 Sec (9.7-11.5)
[2019-01-31 07:41] LABS: Albumin, Blood 3.2 g/dL (3.4-5.0); Anion Gap 7 mmol/L (6-16); Blood Urea Nitrogen 43 mg/dL (8-24); Bun/Creatinine Ratio 11.8 (12.0-20.0); CO2, Blood 30 mmol/L (21-32); Calcium, Blood 8.9 mg/dL (8.5-10.1); Chloride, Blood 101 mmol/L (98-108); Creatinine, Blood 3.63 mg/dL (0.60-1.20); Glomerular Filtration Rate 17 (60-); Glucose, Blood 112 mg/dL (70-99); Phosphorus, Blood 4.6 mg/dL (2.5-4.9); Potassium, Blood 4.4 mmol/L (3.5-5.5); Sodium, Blood 138 mmol/L (136-145)
[2019-01-31 14:08] LABS: Creatinine Urine 43.9 mg/dL (27.00-270.00)
[2019-01-31] MEDS ORDERED: FURO80 PO (19:20)
--- NOTE | 2019-01-31 19:20 | NUR ---
SHIFT SUMMARY: NO ACUTE CHANGES TO REPORT THIS SHIFT. PT A&O; CALM AND COOPERATIVE WITH CARE. NO C/O PAIN THIS SHIFT. TELE IN PLACE; A-FIB @ 77 PER SILVER DESIGNER.STRESS TEST ACCOMPLISHED THIS SHIFT; EXPECTED D/C THIS EVENING c ORAL ABX. REPORT GIVEN TO ONCOMING RN.
[2019-01-31] MEDS ORDERED: Isosorbide Mono30 MG PO (19:21)
[2019-01-31] MEDS ORDERED: LEVOFLOXACIN750 MG PO (19:23)
[2019-01-31] MEDS ORDERED: NITR.4SL SL (19:23)
[2019-01-31] MEDS ORDERED: Florastor250 MG PO (19:24)
[2019-01-31] MEDS ORDERED: Liquitears15 ML BOTHEYES (19:24)
== END 2019-01-31 19:45 | disposition home or self-care (01) ==
LOC: ER 21:53 → PCU 21:54 → MEDS 21:54 → PCU 21:54 → MEDS 01-29 01:50 → PCU 01-29 02:00 → MEDS 01-29 07:45
PROVIDERS: Emergency Medicine; Family Medicine; Internal Medicine; ADMIT Family Medicine
DX: R07.89 Other chest pain (principal); R10.811 Right upper quadrant abdominal tenderness; I13.2 Hypertensive heart and chronic kidney disease with heart failure and with stage 5 chronic kidney disease, or end stage renal disease; E11.22 Type 2 diabetes mellitus with diabetic chronic kidney disease; I50.42 Chronic combined systolic (congestive) and diastolic (congestive) heart failure; N18.6 End stage renal disease; D63.1 Anemia in chronic kidney disease; G47.33 Obstructive sleep apnea (adult) (pediatric); E11.42 Type 2 diabetes mellitus with diabetic polyneuropathy; J44.9 Chronic obstructive pulmonary disease, unspecified; I25.10 Atherosclerotic heart disease of native coronary artery without angina pectoris; R74.8 Abnormal levels of other serum enzymes; J81.1 Chronic pulmonary edema; I27.20 Pulmonary hypertension, unspecified; N40.0 Benign prostatic hyperplasia without lower urinary tract symptoms; I42.9 Cardiomyopathy, unspecified; I48.2 Chronic atrial fibrillation; M10.9 Gout, unspecified; Z99.81 Dependence on supplemental oxygen; Z99.2 Dependence on renal dialysis; Z88.5 Allergy status to narcotic agent; Z79.899 Other long term (current) drug therapy; Z79.01 Long term (current) use of anticoagulants
CPT/HCPCS: 36415; 71046; 76705; 78452; 80053; 80069; 81050; 82570; 82947; 83690; 83880; 84145; 84484; 85025; 85027; 85610; 87486; 87581; 87633; 87798; 93005; 93010; 93306; 94640; 94660; 94762; 96374; 99285-25; A9500; J0280; J1815; J1956; J2270; J2785

== ENCOUNTER 2019-05-10 16:54 | Emergency (ER) | payer OTHER ==
[~2019-05-10] VITALS: Ht 193 cm; Wt 125.6 kg
[~2019-05-10 16:54] MED LIST changes: +FURO80 PO; +Florastor250 MG PO; +LEVOFLOXACIN750 MG PO; +Liquitears15 ML BOTHEYES; +NITR.4SL SL
[2019-05-10] MEDS ORDERED: MIRALAX17 GM PO (19:20)
[2019-05-10] MEDS ORDERED: Percocet 5-3251 EACH PO (19:20)
== END 2019-05-10 19:55 | disposition home or self-care (01) ==
LOC: ER 16:54
DX: M25.461 Effusion, right knee (principal); I48.91 Unspecified atrial fibrillation; Z87.442 Personal history of urinary calculi; Z87.891 Personal history of nicotine dependence; Z79.899 Other long term (current) drug therapy; Z88.5 Allergy status to narcotic agent; Z79.01 Long term (current) use of anticoagulants; Z96.652 Presence of left artificial knee joint
CPT/HCPCS: 29505; 73564; 99283-25

== ENCOUNTER 2019-12-05 07:33 | Day surgery (SDC) | payer OTHER ==
[~2019-12-05] VITALS: Ht 190.5 cm; Wt 121.5 kg
[~2019-12-05 07:33] MED LIST changes: +BISA5EC PO; +CALC.25 PO; +CALCITRATE200 MG PO; +CYCL10 PO; +Coumadin2 MG PO; +FERSU300 PO; +Imdur-ER60 MG PO; -LEVSOD112 PO; +MAGNESIUM OXID500 MG PO; +PANT20 PO; +STRIVERDI RESPIM4 GM INH
== END 2019-12-05 10:12 | disposition home or self-care (01) ==
LOC: ORSCSDS 07:33
PROVIDERS: Internal Medicine Gastroenterology
PROC: 0DBK8ZX Excision of Ascending Colon, Via Natural or Artificial Opening Endoscopic, Diagnostic (ICD-10-PCS; principal; 2019-12-05 09:00)
PROC: 0DBN8ZX Excision of Sigmoid Colon, Via Natural or Artificial Opening Endoscopic, Diagnostic (ICD-10-PCS; principal; 2019-12-05 09:00)
PROC: 0DBH8ZX Excision of Cecum, Via Natural or Artificial Opening Endoscopic, Diagnostic (ICD-10-PCS; principal; 2019-12-05 09:00)
DX: K62.5 Hemorrhage of anus and rectum (principal); D64.9 Anemia, unspecified; D12.0 Benign neoplasm of cecum; D12.2 Benign neoplasm of ascending colon; D12.5 Benign neoplasm of sigmoid colon; K64.8 Other hemorrhoids; I25.10 Atherosclerotic heart disease of native coronary artery without angina pectoris; I48.91 Unspecified atrial fibrillation; K21.9 Gastro-esophageal reflux disease without esophagitis; I12.9 Hypertensive chronic kidney disease with stage 1 through stage 4 chronic kidney disease, or unspecified chronic kidney disease; E11.22 Type 2 diabetes mellitus with diabetic chronic kidney disease; N18.4 Chronic kidney disease, stage 4 (severe); Z87.891 Personal history of nicotine dependence; E66.01 Morbid (severe) obesity due to excess calories; Z68.43 Body mass index [BMI] 50.0-59.9, adult; Z79.899 Other long term (current) drug therapy
CPT/HCPCS: 82947; 88305; J2405; J2704; J7120

== ENCOUNTER 2019-12-25 17:34 | Observation (INO) | payer OTHER ==
[~2019-12-25] VITALS: Ht 190.5 cm; Wt 126.0 kg
[~2019-12-25 17:34] MED LIST changes: +TORSE20
[2019-12-25 19:04] LABS: BASOPHILS ABSOLUTE AUTO 0.11 K/mm3 (0.00-0.23); BASOPHILS PERCENT AUTO 1 % (0-2); EOSINOPHILS ABSOLUTE AUTO 0.43 K/mm3 (0.00-0.68); EOSINOPHILS PERCENT AUTO 5 % (0-6); IMMATURE GRAN ABSOLUTE AUTO 0.08 K/mm3 (0.00-0.10); IMMATURE GRAN PERCENT AUTO 1 % (0-1); LYMPHOCYTES ABSOLUTE AUTO 0.92 K/mm3 (0.84-5.20); LYMPHOCYTES PERCENT AUTO 11 % (21-46); MONOCYTES ABSOLUTE AUTO 0.65 K/mm3 (0.16-1.47); MONOCYTES PERCENT AUTO 8 % (4-13); Mean Corpuscular HGB 28.5 pg (26.0-34.0); Mean Corpuscular HGB Conc 30.4 g/dL (31.5-36.5); Mean Corpuscular Volume 94 fL (80-100); Mean Platelet Volume 11.3 fL (9.1-12.4); NEUTROPHILS ABSOLUTE AUTO 6.15 K/mm3 (1.96-9.15); NEUTROPHILS PERCENT AUTO 74 % (41-73); NRBC ABSOLUTE 0.02 K/mm3 (0.00-0.02); NRBC Auto 0.2 /100 WBC (0.0-0.2); Platelet Count 189 K/mm3 (150-400); RDW Coefficient Variation 19.4 % (11.7-14.2); Red Blood Cell Count 2.46 M/mm3 (4.30-5.90); White Blood Cell Count 8.34 K/mm3 (4.00-11.30)
[2019-12-25 19:52] LABS: Prothrombin Time Results 41.5 Sec (9.7-11.5)
[2019-12-25 19:54] LABS: International Normalized Ratio 4.21
[2019-12-25 19:55] LABS: Albumin, Blood 2.5 g/dL (3.4-5.0); Albumin/Globulin Ratio 0.7 (0.8-1.8); Bilirubin, Total 1.1 mg/dL (0.1-1.0); Bun/Creatinine Ratio 23.6 (12.0-20.0); Calcium, Blood 8.1 mg/dL (8.5-10.1); Creatinine, Blood 2.46 mg/dL (0.60-1.20); Globulin, Blood 3.8 g/dL (2.2-4.0); Potassium, Blood 4.2 mmol/L (3.5-5.5); Total Protein, Blood 6.3 g/dL (6.4-8.2)
[2019-12-25] MEDS ORDERED: POTA10T PO (21:08)
[2019-12-25] MEDS ORDERED: TORSE20 PO (22:43)
[2019-12-25] MEDS ORDERED: Isosorbide Mono30 MG PO (22:51)
--- NOTE | 2019-12-25 22:53 | NUR ---
ADMISSION: PATIENT IS RECIEVED FROM ER VIA STRETCHER. NO COMPLAINTS OF PAIN, VS ARE STABLE. PATIENT IS ORIENTED TO ROOM AND CALL FARRIS INSTRUCTED TO CALL FOR ASSIST OOB TO PREVENT FALLS. PATIENT REPORTS BEING WEAK LAST COUPLE OF DAYS. UNIT OF BLOOD WAS COMPLETED IN ER.
--- NOTE | 2019-12-26 00:30 | NUR ---
ASSUMPTION OF CARE REPORT TAKEN FROM ANGELIQUE CARBAJAL TO ASSUME CARE OF PT AT THIS TIME. PT RESTING IN BED ON HIS CPAP. HE DENIES NEEDS AT THIS TIME. WILL CONTINUE TO MONITOR.
--- NOTE | 2019-12-26 03:34 | NUR ---
CHEST PAIN AT 0311 PT REPORTED CHEST PAIN IN HIS RIGHT LOWER CHEST. HE STATES 6 (0-10) PAIN. HE STATES THAT THE PAIN DOES NOT RADIATE. HE DENIES SOB, NAUSEA. UPON MY ASSESSMENT. PT RESTING IN BED DOES NOT APPEAR IN ACUTE DISTRESS. SKIN DRY. VITALS STABLE. NOTIFIED KITCHEN CLEANERANGELIQUE JACQUES CLJOSE OF PT COMPLAINTS OF CHEST PAIN. WHEN SAWYER ARRIVED WITH EKG MACHINE PT REPORTS THAT HIS CHEST PAIN WAS GONE, AND THAT HE HAS ESPISODES LIKE THIS ALL THE TIME AT HOME AND DECLINED AND EKG. DR. HOUSER CALLED AND NOTIFIED OF PT CHEST PAIN AND OF PT REPORT THAT HE HAS THIS PAIN AT HOME. NO NEW ORDERS WERE GIVEN. WILL CONTINUE TO MONITOR.
[2019-12-26 04:19] LABS: BASOPHILS ABSOLUTE AUTO 0.08 K/mm3 (0.00-0.23); BASOPHILS PERCENT AUTO 1 % (0-2); EOSINOPHILS ABSOLUTE AUTO 0.46 K/mm3 (0.00-0.68); EOSINOPHILS PERCENT AUTO 6 % (0-6); Hematocrit 23.6 % (37.0-53.0); Hemoglobin 7.2 g/dL (13.5-17.5); IMMATURE GRAN ABSOLUTE AUTO 0.08 K/mm3 (0.00-0.10); IMMATURE GRAN PERCENT AUTO 1 % (0-1); LYMPHOCYTES ABSOLUTE AUTO 0.87 K/mm3 (0.84-5.20); LYMPHOCYTES PERCENT AUTO 11 % (21-46); MONOCYTES ABSOLUTE AUTO 0.65 K/mm3 (0.16-1.47); MONOCYTES PERCENT AUTO 8 % (4-13); Mean Corpuscular HGB Conc 30.5 g/dL (31.5-36.5); Mean Corpuscular Volume 92 fL (80-100); Mean Platelet Volume 10.5 fL (9.1-12.4); NEUTROPHILS ABSOLUTE AUTO 6.15 K/mm3 (1.96-9.15); NEUTROPHILS PERCENT AUTO 74 % (41-73); NRBC ABSOLUTE 0.03 K/mm3 (0.00-0.02); NRBC Auto 0.4 /100 WBC (0.0-0.2); Platelet Count 174 K/mm3 (150-400); RDW Coefficient Variation 20.4 % (11.7-14.2); Red Blood Cell Count 2.57 M/mm3 (4.30-5.90); White Blood Cell Count 8.29 K/mm3 (4.00-11.30)
[2019-12-26 04:34] LABS: International Normalized Ratio 3.91; Prothrombin Time Results 38.7 Sec (9.7-11.5)
[2019-12-26 04:47] LABS: Creatinine, Blood 2.46 mg/dL (0.60-1.20); Potassium, Blood 4.2 mmol/L (3.5-5.5)
--- NOTE | 2019-12-26 05:58 | NUR ---
SHIFT SUMMARY ASSUMED CARE OF PT AFTER MIDNIGHT. PT ER ADMIT FOR ANEMIA. HE RECEIVED A UNIT OF BLOOD IN THE ER FOR A HGB OF 7.O. PT HAS RESTED SINCE ARRIVING TO THE FLOOR. HE DENIES SOB. SBA IN ROOM. SHORT EPISODE OF CHEST PAIN WHILE IN BED THAT LASTED BREIFLY. VITALS WERE STABLE. NOTIFIED. ADMISSION COMPLEETE. RESTFUL NIGHT FOR PT OVERALL. POSSIBLE DC TODAY PENDING RESULTS OF H&H. BED IN LOWEST POSITION, CALL LIGHT WITHIN REACH. WILL CONTINUE TO MONITOR AND REPORT TO ONCOMING RN.
--- NOTE | 2019-12-26 13:55 | NUR ---
ASSUMED CARE ASSUMED CARE OF PT. FIRST UNIT OF BLOOD FLUSHING NOW. PT AMBULATED TO BATHROOM. NO CHANGES IN ASSESSMENT FROM PREVIOUS RN AT THIS TIME. WILL CONTINUE TO MONITOR.
--- NOTE | 2019-12-26 16:51 | NUR ---
SHIFT SUMMARY PT FINISHING UP SECOND UNIT OF PRBC AT THIS TIME. TOLERATING WELL. OT LASIX DOSE GIVEN BETWEEN UNITS. PT AMBULATING WELL TO BATHROOM INDEPEDENTLY. 2-3L O2 PRN. PT SATING IN THE 90S THROUGHOUT THE DAY. NO OTHER CHANGES IN ASSESSMENT AT THIS TIME. VSS. WILL CONTINUE TO MONITOR UNTIL TURNOVER IS COMPLETE.
[2019-12-26 18:53] LABS: Hematocrit 27.3 % (37.0-53.0); Hemoglobin 8.4 g/dL (13.5-17.5); Mean Corpuscular HGB 27.5 pg (26.0-34.0); Mean Corpuscular HGB Conc 30.8 g/dL (31.5-36.5); Mean Platelet Volume 9.9 fL (9.1-12.4); NRBC ABSOLUTE 0.03 K/mm3 (0.00-0.02); NRBC Auto 0.4 /100 WBC (0.0-0.2); Platelet Count 175 K/mm3 (150-400); RDW Standard Deviation 64.4 fL (35.1-46.3); Red Blood Cell Count 3.06 M/mm3 (4.30-5.90); White Blood Cell Count 7.89 K/mm3 (4.00-11.30)
[2019-12-26 18:55] LABS: Mean Corpuscular Volume 89 fL (80-100)
--- NOTE | 2019-12-26 22:49 | NUR ---
RN TO RN PATIENT TRANSFER. REPORT TAKEN FROM BENNY MERINO.
--- NOTE | 2019-12-27 04:53 | NUR ---
SHIFT SUMMARY PATIENT HAD NO ACUTE CHANGES OBSERVED. AXOX 4 AND INDEPENDENT IN THE ROOM. PIV REMAINS INTACT. ON 2-3 L O2 NC PRN. VSS/AFEBRILE. DENIES PAIN, SOB, AND N/V. CALL LIGHT IN REACH. BED IN LOWEST POSITION. WILL CONTINUE TO MONITOR UNTIL DAY SHIFT NURSE ASSUMES CARE.
[2019-12-27 05:13] LABS: BASOPHILS ABSOLUTE AUTO 0.08 K/mm3 (0.00-0.23); BASOPHILS PERCENT AUTO 1 % (0-2); EOSINOPHILS ABSOLUTE AUTO 0.46 K/mm3 (0.00-0.68); EOSINOPHILS PERCENT AUTO 6 % (0-6); Hematocrit 25.2 % (37.0-53.0); Hemoglobin 7.9 g/dL (13.5-17.5); IMMATURE GRAN ABSOLUTE AUTO 0.05 K/mm3 (0.00-0.10); IMMATURE GRAN PERCENT AUTO 1 % (0-1); LYMPHOCYTES PERCENT AUTO 10 % (21-46); MONOCYTES ABSOLUTE AUTO 0.72 K/mm3 (0.16-1.47); MONOCYTES PERCENT AUTO 9 % (4-13); Mean Corpuscular HGB 27.7 pg (26.0-34.0); Mean Corpuscular HGB Conc 31.3 g/dL (31.5-36.5); Mean Corpuscular Volume 88 fL (80-100); Mean Platelet Volume 10.2 fL (9.1-12.4); NEUTROPHILS ABSOLUTE AUTO 5.94 K/mm3 (1.96-9.15); NEUTROPHILS PERCENT AUTO 74 % (41-73); NRBC ABSOLUTE 0.02 K/mm3 (0.00-0.02); NRBC Auto 0.2 /100 WBC (0.0-0.2); Platelet Count 179 K/mm3 (150-400); RDW Coefficient Variation 19.9 % (11.7-14.2); RDW Standard Deviation 63.7 fL (35.1-46.3); Red Blood Cell Count 2.85 M/mm3 (4.30-5.90); White Blood Cell Count 8.05 K/mm3 (4.00-11.30)
[2019-12-27 05:27] LABS: International Normalized Ratio 3.63; Prothrombin Time Results 36.1 Sec (9.7-11.5)
--- NOTE | 2019-12-27 13:08 | NUR ---
PT WAS DCD HOME WITH . MED REC FAXED TO [facility] FOR PROFILE ONLY. IV REMOVED WITH NO ISSUE. ALL INSTRUCTIONS REVIEWED WITH PT. PT TO F/U WITH [facility]. ALL PERSONAL BELONGINGS SENT WITH PT.
== END 2019-12-27 12:39 | disposition home or self-care (01) ==
LOC: ER 17:34 → MEDS 17:35
PROVIDERS: Emergency Medicine; Family Medicine; Pharmacist; ADMIT Internal Medicine
DX: D50.9 Iron deficiency anemia, unspecified (principal); I13.0 Hypertensive heart and chronic kidney disease with heart failure and stage 1 through stage 4 chronic kidney disease, or unspecified chronic kidney disease; E11.22 Type 2 diabetes mellitus with diabetic chronic kidney disease; N18.4 Chronic kidney disease, stage 4 (severe); I50.42 Chronic combined systolic (congestive) and diastolic (congestive) heart failure; D63.1 Anemia in chronic kidney disease; R79.1 Abnormal coagulation profile; E11.42 Type 2 diabetes mellitus with diabetic polyneuropathy; I25.10 Atherosclerotic heart disease of native coronary artery without angina pectoris; I48.20 Chronic atrial fibrillation, unspecified; I48.0 Paroxysmal atrial fibrillation; E78.5 Hyperlipidemia, unspecified; J44.9 Chronic obstructive pulmonary disease, unspecified; E03.9 Hypothyroidism, unspecified; K21.9 Gastro-esophageal reflux disease without esophagitis; M10.9 Gout, unspecified; Z79.01 Long term (current) use of anticoagulants; Z99.81 Dependence on supplemental oxygen; Z88.5 Allergy status to narcotic agent; Z91.018 Allergy to other foods; Z79.899 Other long term (current) drug therapy; Z79.4 Long term (current) use of insulin; Z79.51 Long term (current) use of inhaled steroids
CPT/HCPCS: 36415; 36430; 80048; 80053; 82947; 85025; 85027; 85610; 86850; 86900; 86901; 86923; 94640; 94660; 94762; 96374; 96375; 99285-25; A9270-GY; C9113; G0378; J1940; J7030; J7050; P9016

== ENCOUNTER 2020-02-12 13:52 | Inpatient (IN) | payer OTHER ==
[~2020-02-12] VITALS: Ht 190.5 cm; Wt 125.3 kg
[~2020-02-12 13:52] MED LIST changes: -ALLO100 PO; -ATOR10 PO; -CALC.25 PO; -CALCITRATE200 MG PO; -CYCL10 PO; -DOCU100 PO; -DULERA 200 MCG/13 GM INH; -FINA5 PO; -Glucosamine H1500 MG PO; -Imdur-ER60 MG PO; -Liquitears15 ML BOTHEYES; -NITR.4SL SL; -PANT20 PO; -STIOLTO RESPIMAT4 GM INH; -TAMSULOSIN HCL0.4 MG PO; -TORSE20
[2020-02-12 14:26] LABS: BASOPHILS PERCENT AUTO 1 % (0-2); EOSINOPHILS PERCENT AUTO 2 % (0-6); Hematocrit 19.7 % (37.0-53.0); Hemoglobin 6.1 g/dL (13.5-17.5); IMMATURE GRAN ABSOLUTE AUTO 0.07 K/mm3 (0.00-0.10); IMMATURE GRAN PERCENT AUTO 1 % (0-1); LYMPHOCYTES ABSOLUTE AUTO 0.57 K/mm3 (0.84-5.20); LYMPHOCYTES PERCENT AUTO 7 % (21-46); MONOCYTES ABSOLUTE AUTO 0.62 K/mm3 (0.16-1.47); MONOCYTES PERCENT AUTO 7 % (4-13); Mean Corpuscular HGB 30.7 pg (26.0-34.0); Mean Corpuscular Volume 99 fL (80-100); Mean Platelet Volume 10.8 fL (9.1-12.4); NEUTROPHILS ABSOLUTE AUTO 7.21 K/mm3 (1.96-9.15); NEUTROPHILS PERCENT AUTO 82 % (41-73); NRBC ABSOLUTE 0.02 K/mm3 (0.00-0.02); NRBC Auto 0.2 /100 WBC (0.0-0.2); Platelet Count 150 K/mm3 (150-400); RDW Coefficient Variation 19.5 % (11.7-14.2); RDW Standard Deviation 68.9 fL (35.1-46.3); Red Blood Cell Count 1.99 M/mm3 (4.30-5.90); White Blood Cell Count 8.77 K/mm3 (4.00-11.30)
[2020-02-12 14:37] LABS: International Normalized Ratio 2.03; Prothrombin Time Results 20.9 Sec (9.7-11.5)
[2020-02-12 14:45] LABS: Alanine Aminotransfer (ALT/SGP 20 U/L (12-78); Albumin, Blood 2.4 g/dL (3.4-5.0); Albumin/Globulin Ratio 0.7 (0.8-1.8); Alk Phos 136 U/L (50-136); Anion Gap 8 mmol/L (6-16); Aspartate Aminotrans (AST/SGOT 23 U/L (12-37); Bilirubin, Total 0.8 mg/dL (0.1-1.0); Blood Urea Nitrogen 83 mg/dL (8-24); Bun/Creatinine Ratio 28.9 (12.0-20.0); CO2, Blood 29 mmol/L (21-32); Calcium, Blood 7.8 mg/dL (8.5-10.1); Chloride, Blood 99 mmol/L (98-108); Creatinine, Blood 2.87 mg/dL (0.60-1.20); Ethanol (Alcohol), Blood, Med <3 mg/dL; Globulin, Blood 3.6 g/dL (2.2-4.0); Glomerular Filtration Rate 23 (60-); Glucose, Blood 210 mg/dL (70-99); Potassium, Blood 3.7 mmol/L (3.5-5.5); Sodium, Blood 136 mmol/L (136-145)
[2020-02-12] MEDS ORDERED: ALLO100 PO (16:38)
[2020-02-12] MEDS ORDERED: ATOR10 PO (16:38)
[2020-02-12] MEDS ORDERED: CALC.25 PO (16:40)
[2020-02-12] MEDS ORDERED: CALCITRATE200 MG PO (16:40)
[2020-02-12] MEDS ORDERED: DOCU100 PO (16:42)
[2020-02-12] MEDS ORDERED: FINA5 PO (16:42)
[2020-02-12] MEDS ORDERED: Fergon240 M1 PO (16:43)
[2020-02-12 16:45] LABS: Source, Urine Clean Catch
[2020-02-12] MEDS ORDERED: METO25ER PO (16:45)
[2020-02-12] MEDS ORDERED: LEVSOD100 PO (16:45)
[2020-02-12] MEDS ORDERED: Imdur-ER60 MG PO (16:46)
[2020-02-12] MEDS ORDERED: GLIP5 PO (16:46)
[2020-02-12 16:47] LABS: Bilirubin, Urine Neg (Neg); Blood, Urine Neg (Neg); Glucose Qualitative, Urine Neg (Neg); Ketones, Urine Neg (Neg); Leukocyte Esterase, Urine Neg (Neg); Nitrite, Urine Neg (Neg); Protein, Urine Neg (Neg); Urobilinogen, Urine NORM (Normal)
[2020-02-12] MEDS ORDERED: POTA10T PO (16:47)
[2020-02-12] MEDS ORDERED: PANT20 PO (16:47)
[2020-02-12] MEDS ORDERED: ASMANEX HFA13 GM INH (16:49)
[2020-02-12] MEDS ORDERED: STIOLTO RESPIMAT4 GM INH (16:51)
[2020-02-12] MEDS ORDERED: NITR.4SL SL (16:51)
[2020-02-12] MEDS ORDERED: TAMSULOSIN HCL0.4 MG PO (16:53)
[2020-02-12] MEDS ORDERED: TORSE20 PO (16:54)
[2020-02-12] MEDS ORDERED: WARF6 PO (16:56)
[2020-02-12] MEDS ORDERED: WARF4 PO (16:56)
[2020-02-12 17:01] LABS: Appearance, Urine Clear (Clear); Color, Urine Yellow (P-Yellow)
[2020-02-12 17:03] LABS: U Amphetamine Screen Not Detected; U Barbituate Screen Not Detected; U Benzodiazapine Screen Not Detected; U Buprenorphine Screen Not Detected; U Cannabinoids Screen Not Detected; U Cocaine Screen Not Detected; U Methadone Screen Not Detected; U Methamphetamine Screen Not Detected; U Opiates Screen Not Detected; U Oxycodone Screen Not Detected; U Phencyclidine Screen Not Detected; U Propoxyphene Screen Not Detected
[2020-02-12] MEDS ORDERED: Glucosamine/Chondroi PO (17:22)
[2020-02-12] MEDS ORDERED: GENTEAL TEARS 015 ML BOTHEYES (17:24)
[2020-02-12] MEDS ORDERED: MUSE500 MCG UR (17:24)
[2020-02-12] MEDS ORDERED: CYCL10 PO (17:25)
--- NOTE | 2020-02-12 18:55 | NUR ---
TRANSFER TO ICU RM 12 FROM ER REPORT RECIEVED FROM ROBB. PT A/O X4, FORGETFUL, LUNG SOUDS WITH CRACKLES AT BASES, SPO2 >90% ON RA. HR 80'S AFIB, NEURO ASSESSMENT WNL. BLOOD AND PROTONIX INFUSING PER ORDERS. UPDATED. NEW ORDER RECVIED, REPORT TO ONCOMING SHIFT.
--- NOTE | 2020-02-12 19:39 | NUR ---
RN VERIFICATION THIS RN WORKED WITH SN TODAY, SUPERVISED AND AGREES WITH ALL CHARTING AND CARE.
--- NOTE | 2020-02-12 20:00 | NUR ---
ASSESSMENT/ASSUMED CARE PT SITTING UP IN BED WATCHING TV. DENIES PAIN AT THIS TIME. A&O ANSWERING QUESTIONS APPROP. FIRST UNIT BLOOD COMPLETE. PT UP TO EDGE OF BED TO VOID. STAND WITH WALKER AND TWO ASSIST. BACK TO SITTING ON THE BED. LUNGS CLEAR WITH CRACKLES IN THE BASES ON ROOMAIR. RESP EVEN AND NONLABORED. HEART RATE IRREGULAR-AFIB IN THE 90'S. BP STABLE. ASSITED BACK TO BED WITH LEFT LEG ELEVATED. 3+ PITTING EDEMA NOTED. FISTULA TO LEFT WRIST WITH STRONG THRILL. BT+ ABD ROUND, OBESE NONTENDER. DENIES N/V. IV 20G TO RIGHT AC WITH NS AT TKO FOR BLOOD. SITE CLEAR. IV 20G RIGHT FOREARM WITH PROTONIX AT 10 ML/HR. PT TO RECEIVE LASIX BEFORE SECOND UNIT.
--- NOTE | 2020-02-12 20:40 | NUR ---
BLOOD SECOND UNIT PRBC STARTED. PT RECEIVED LASIX 20 MG IV
--- NOTE | 2020-02-12 21:56 | NUR ---
PT HAVING MUSCLE SPASM TO LEFT LOWER EXT. UP TO SIDE OF BED TO STAND WITH WALKER AND TWO ASSIST. BACK TO BED WITH THREE PILLOW ELEVATING LEFT LEG. MED WITH FLEXERIL
[2020-02-12 23:51] LABS: Hematocrit 24.2 % (37.0-53.0); Hemoglobin 7.7 g/dL (13.5-17.5)
--- NOTE | 2020-02-13 00:38 | NUR ---
TRANSFUSION HGB 7.7, 3RD UNIT PRBC STARTED.
--- NOTE | 2020-02-13 01:01 | NUR ---
MUSCLE SPASM PT HAVING MUSCLE SPASM TO LEFT CALF. PRESSURE APPLIED TO BOTTOM OF FOOT, CALF RUBBED. PT STATES,"CAN I HAVE THE OTHER HALF OF THE FLEXERIL I HAD EARLIER"? CALL TO DR PURVIS AND ORDER RECEIVED.
--- NOTE | 2020-02-13 03:42 | NUR ---
3RD PRBC COMPLETE, LASIX 20 MG GIVEN.
[2020-02-13 04:40] LABS: Hematocrit 23.6 % (37.0-53.0); Hemoglobin 7.6 g/dL (13.5-17.5)
[2020-02-13 05:00] LABS: Albumin, Blood 2.3 g/dL (3.4-5.0); Albumin/Globulin Ratio 0.7 (0.8-1.8); Bilirubin, Total 2.8 mg/dL (0.1-1.0); Bun/Creatinine Ratio 29.8 (12.0-20.0); Calcium, Blood 7.7 mg/dL (8.5-10.1); Creatinine, Blood 2.72 mg/dL (0.60-1.20); Globulin, Blood 3.3 g/dL (2.2-4.0); Potassium, Blood 3.7 mmol/L (3.5-5.5); Total Protein, Blood 5.6 g/dL (6.4-8.2)
[2020-02-13 05:04] LABS: International Normalized Ratio 1.97; Prothrombin Time Results 20.3 Sec (9.7-11.5)
--- NOTE | 2020-02-13 05:18 | NUR ---
H&H NOTIFIED DR PURVIS REGARDING H&H .03/16. AFTER 3 UNITS PRBC. NO NEW ORDER AT THIS TIME, CONT TO MONITOR
--- NOTE | 2020-02-13 05:54 | NUR ---
SHIFT SUMMARY PT RESTING QUIELTY. UP WITH STANDBY ASSIST AND WALKER TO VOID. PT HAS RECEIVED 3 UNITS PRBC WITH LASIX 20 MG AFTER FIRST AND LAST UNIT. LUNGS CURRENTLY CLEAR BUT DECREASED IN THE BASES. PT USING HOME CPAP WITH 3 LITERS O2 BLEED IN. H&H THIS AM 7.6/23.[address] PURVIS, NO NEW ORDERS. NO S/S BLEEDING NOTED. PROTONIX GTT INFUSING AT 10 ML/HR. VSS. FISTULA TO LEFT ARM, NO BP OR BLOOD DRAWS DONE. PT NPO SINCE 0300 FOR EGD THIS AM. REPORT TO ON COMING NURSE.
[2020-02-13 07:49] LABS: Hematocrit 24.3 % (37.0-53.0); Hemoglobin 7.8 g/dL (13.5-17.5)
--- NOTE | 2020-02-13 07:56 | NUR ---
PT A&OX3. REPORTS GENERALIZED DISCOMFORT FROM SYNCOPAL EPISODE AT HOME. PT STATES THAT REPOSITIONING IS THE MOST HELPFUL THE MAJORITY OF HIS DISCOMFORT IS ON HIS "TAIL BONE." PT IS AFEBRILE. ECG CONTINUES AFIB WITH OCCASIONAL VENTRICULAR ECTOPY-HR 90'S. SBP TRENDING 130'S. LOWER EXTREMITIES WITH 3+ PITTING EDEMA. OFFERED TO ELEVATE EXTREMITIES ON PILLOWS, BUT PT REFUSES AT THIS TIME. LUNGS WITH BILATERAL, FINE, CRACKLES. SATS>90% ON RA. NPO EXCEPT FOR A SIP OF WATER WITH AM MEDS. PT DENIES NAUSEA-NO NOTED ACUTE GIB. PT STATES THAT HE HAS NOT HAD A BM SINCE "SUNDAY." H&H CONTINUES EVERY FOUR HOURS-DRAWN BY ANTHONY FROM LAB. PT ABLE TO STAND AT THE BEDSIDE WITH ONE PERSON STANDYBY ASSIST WITH WALKER. VOIDED 500 CC CLEAR, YELLOW URINE. PT HAS ADULT BRIEF IN PLACE FOR OCCASIONAL INCONTINENCE. ADULT BRIEF IS C/D/I AT THE TIME OF ASSESSMENT. PT HAS SCATTERED ECCHYMOSIS REMAINING FROM HIS SYNCOPAL EPESODE/FALL AT HOME. LEFT UPPER ARM KERLIX AND MEFIX DRESSING IS C/D/I. RIGHT TRONCOSO CELLULITIS NOTED. WITH 3+ PITTING EDEMA, PEDAL PULSES FAINT, BUT LOWER EXTREMITIES WARM.
[2020-02-13 11:26] LABS: Hematocrit 24.3 % (37.0-53.0); Hemoglobin 7.8 g/dL (13.5-17.5)
--- NOTE | 2020-02-13 12:17 | NUR ---
DR. VILLANUEVA, DR. MACHADO, AND ENDO RN SREEKANTH & JAK AT BEDSIDE. INFORMED CONSENT OBTAINED TO DO EGD WITH MONITORED ANESTHESIA CARE.
--- NOTE | 2020-02-13 12:17 | NUR ---
02/13/20 1217 JAK SORTO History, Chart, Medications and Allergies reviewed before start of procedure. 3-LEAD EKG REVIEWED WITH PHYSICIAN PRIOR TO START OF PROCEDURE. O2 VIA N/C INTACT THROUGHOUT SEDATION/PROCEDURE. MONITOR INTACT WITH CONTINUOUS PULSE OXIMETRY AND INTERMITTENT BP. MAC WITH DR. MACHADO.
--- NOTE | 2020-02-13 12:38 | NUR ---
ECG COMPLETED. AVM'S CAUTERIZED. REPORTS FROM ANGELIQUE BENEDICT.
[2020-02-13 12:54] LABS: Bun/Creatinine Ratio 29.4 (12.0-20.0); Calcium, Blood 7.4 mg/dL (8.5-10.1); Creatinine, Blood 2.72 mg/dL (0.60-1.20); Potassium, Blood 4.2 mmol/L (3.5-5.5)
--- NOTE | 2020-02-13 13:25 | NUR ---
PT DROWSY, BUT AWAKENS TO VOICE. CPAP WITH 3 LITER BLEED IN. WILL INITIATE CLEAR LIQUID DIET WHEN PT MORE AWAKE. DR. UPTON UPDATED TO CURRENT VS AND STATUS.PT CHANGED TO MED TELE STATUS. PT TO HAVE LUMBAR AND PELVIS 2-3V XRAY PER SPOUSE REQUEST-PT FELL AT HOME AND LANDED ON HIS COCCYX/BUTTOCKS. RED TAG STUDY TO BE DONE TOMORROW @ 1000. PT SPOUSE ALSO UPDATED TO CURRENT VS AND STATUS. DR. VILLANUEVA IN TO SEE PT BRIEFLY TO DISCUSS THE RESULTS OF THE EGD. OK TO ADVANCE DIET TO FULL LIQUIDS TONIGHT IF PT IS TOLERATING CLEAR LIQUIDS.
--- NOTE | 2020-02-13 15:52 | NUR ---
PT TOLERATED CLEAR LIQUID DIET WELL. FULL LIQUIDS ORDERED FOR DINNER. PRBC'S STILL TRANSFUSING. H&H AND TROPONIN TO BE DRAWN @ 1700. REPORT GIVEN TO ANGELIQUE DUNCAN. PT TRANSFERED TO [facility] VIA BED.
--- NOTE | 2020-02-13 16:08 | NUR ---
ASSUMPTION OF CARE NOTE PATIENT IS PLEASANT, ALERT AND ORIENTED. HE DOES NOTE THAT HE FELL PRE-HOSPITALIZATION AND IS RUNNING BLOOD. HE DENIES ANY CONCERNS MINUS HIS SACRUM DULL ACHE. DENIES DIZZINESS AT THIS TIME. STANDS AT BEDSIDE WITH URINAL WHEN HE FEELS UP TO IT. HIS BLOOD IS ALMOST DONE RUNNING. CURRENTLY HE IS IN THE BED, BLOOD ALMOST DONE.
[2020-02-13 17:12] LABS: Hematocrit 24.5 % (37.0-53.0); Hemoglobin 7.8 g/dL (13.5-17.5); Mean Corpuscular HGB Conc 31.8 g/dL (31.5-36.5); Mean Corpuscular Volume 97 fL (80-100); Mean Platelet Volume 10.4 fL (9.1-12.4); NRBC ABSOLUTE 0.02 K/mm3 (0.00-0.02); NRBC Auto 0.2 /100 WBC (0.0-0.2); Platelet Count 143 K/mm3 (150-400); RDW Coefficient Variation 18.3 % (11.7-14.2); Red Blood Cell Count 2.52 M/mm3 (4.30-5.90); White Blood Cell Count 8.37 K/mm3 (4.00-11.30)
--- NOTE | 2020-02-13 17:50 | NUR ---
SHIFT SUMMARY PATIENT WAS TRANSFERRED FROM ICU IN THE 1500 HOUR. PATIENT FINISHED A UNIT OF BLOOD ON THE FLOOR. SECOND LAB OF H&H SHOWED NO CHANGES IN THE HEMOGLOBIN. PATIENT TO HAVE NEW H&H AT 1999. HE IS TO HAVE ANOTHER UNIT OF PRBCS IF HIS HEMOGLOBIN IS BELOW 8. PATIENT IS PLEASANT, ALERT AND ORIENTED AND STANDBY ASSIST TO USE THE URINAL AT BEDSIDE. NO ACUTE CONCERNS AT THIS TIME AND PATIENT IS AWAITING.
[2020-02-13 20:36] LABS: Hemoglobin 8.1 g/dL (13.5-17.5)
[2020-02-14 05:25] LABS: BASOPHILS ABSOLUTE AUTO 0.06 K/mm3 (0.00-0.23); BASOPHILS PERCENT AUTO 1 % (0-2); EOSINOPHILS PERCENT AUTO 6 % (0-6); Hematocrit 23.9 % (37.0-53.0); Hemoglobin 7.7 g/dL (13.5-17.5); IMMATURE GRAN ABSOLUTE AUTO 0.07 K/mm3 (0.00-0.10); IMMATURE GRAN PERCENT AUTO 1 % (0-1); LYMPHOCYTES PERCENT AUTO 9 % (21-46); MONOCYTES ABSOLUTE AUTO 0.63 K/mm3 (0.16-1.47); MONOCYTES PERCENT AUTO 8 % (4-13); Mean Corpuscular HGB 30.8 pg (26.0-34.0); Mean Corpuscular HGB Conc 32.2 g/dL (31.5-36.5); Mean Corpuscular Volume 96 fL (80-100); Mean Platelet Volume 10.9 fL (9.1-12.4); NEUTROPHILS ABSOLUTE AUTO 6.04 K/mm3 (1.96-9.15); NEUTROPHILS PERCENT AUTO 75 % (41-73); NRBC ABSOLUTE 0.02 K/mm3 (0.00-0.02); NRBC Auto 0.3 /100 WBC (0.0-0.2); Platelet Count 148 K/mm3 (150-400); RDW Standard Deviation 61.5 fL (35.1-46.3)
[2020-02-14 05:43] LABS: Albumin, Blood 2.2 g/dL (3.4-5.0); Albumin/Globulin Ratio 0.7 (0.8-1.8); Bilirubin, Total 1.8 mg/dL (0.1-1.0); Bun/Creatinine Ratio 29.2 (12.0-20.0); Calcium, Blood 7.8 mg/dL (8.5-10.1); Creatinine, Blood 2.57 mg/dL (0.60-1.20); Globulin, Blood 3.3 g/dL (2.2-4.0); Magnesium, Blood 2.5 mg/dL (1.6-2.4); Potassium, Blood 3.6 mmol/L (3.5-5.5); Total Protein, Blood 5.5 g/dL (6.4-8.2)
--- NOTE | 2020-02-14 09:32 | NUR ---
SPOKE WITH DR. UPTON ABOUT THE PATIENT'S CURRENT WORRIES ABOUT BEING ABLE TO LIE STILL FOR THE TEST. DR. UPTON ORDERED AN EXTRA DOSE OF 5MG OF FLEXERIL TO GIVE A FULL 10MG DOSE PRIOR TO THE PATIENT'S RED TAG STUDY. THIS HAS BEEN ENTERED AND IN THE EMAR, WILL DOCUMENT ON HIS TID ORDER WELL THE ONE TIME ORDER.
--- NOTE | 2020-02-14 18:16 | NUR ---
shift summary patient is pleasant, alert and oriented. no acute concerns at this time. he has had 2 units of blood, a red tag study, and will have a chest xray after the two units are infused. he does note that he has some pain in his shoulder he says that it has not gotten worse, but is dull pain that hasn't changed. he is currently lying in bed. he has updated his . noted some congestion giving him a mild cough. this was explaiend to the doctor and that is why the chest xray, any other concerns will continue to be monitored.
[2020-02-14 19:20] LABS: Hematocrit 29.5 % (37.0-53.0); Hemoglobin 9.5 g/dL (13.5-17.5); Mean Corpuscular HGB 30.8 pg (26.0-34.0); Mean Corpuscular HGB Conc 32.2 g/dL (31.5-36.5); Mean Corpuscular Volume 96 fL (80-100); Mean Platelet Volume 10.9 fL (9.1-12.4); NRBC ABSOLUTE 0.04 K/mm3 (0.00-0.02); NRBC Auto 0.5 /100 WBC (0.0-0.2); Platelet Count 163 K/mm3 (150-400); RDW Coefficient Variation 17.8 % (11.7-14.2); RDW Standard Deviation 59.7 fL (35.1-46.3); Red Blood Cell Count 3.08 M/mm3 (4.30-5.90); White Blood Cell Count 8.82 K/mm3 (4.00-11.30)
--- NOTE | 2020-02-15 03:35 | NUR ---
LATE IMPORT EXPORT MANAGER SUMMARY FROM 02/12 IMPORT EXPORT MANAGER Patient awake frequently from various sounds, each nurse rounding, medications, etc. very frustrated. Also visibly worried about the length of time he will have to lay flat for the red tag test he is to have this AM. 2000 Hgb was 8.1 which the patient appreciated as he was not wanting to receive overnight. Right upper arm Power [place] working well with good blood return. Minimal discomfort which was solved with repositioning with patient participation
[2020-02-15 06:01] LABS: BASOPHILS ABSOLUTE AUTO 0.07 K/mm3 (0.00-0.23); BASOPHILS PERCENT AUTO 1 % (0-2); EOSINOPHILS ABSOLUTE AUTO 0.56 K/mm3 (0.00-0.68); EOSINOPHILS PERCENT AUTO 7 % (0-6); Hematocrit 27.3 % (37.0-53.0); IMMATURE GRAN ABSOLUTE AUTO 0.08 K/mm3 (0.00-0.10); IMMATURE GRAN PERCENT AUTO 1 % (0-1); LYMPHOCYTES ABSOLUTE AUTO 0.61 K/mm3 (0.84-5.20); LYMPHOCYTES PERCENT AUTO 8 % (21-46); MONOCYTES ABSOLUTE AUTO 0.71 K/mm3 (0.16-1.47); MONOCYTES PERCENT AUTO 9 % (4-13); Mean Corpuscular HGB 31.3 pg (26.0-34.0); Mean Corpuscular Volume 95 fL (80-100); Mean Platelet Volume 10.3 fL (9.1-12.4); NEUTROPHILS PERCENT AUTO 74 % (41-73); NRBC ABSOLUTE 0.03 K/mm3 (0.00-0.02); NRBC Auto 0.4 /100 WBC (0.0-0.2); Platelet Count 154 K/mm3 (150-400); RDW Coefficient Variation 17.7 % (11.7-14.2); RDW Standard Deviation 60.1 fL (35.1-46.3); Red Blood Cell Count 2.88 M/mm3 (4.30-5.90); White Blood Cell Count 7.93 K/mm3 (4.00-11.30)
[2020-02-15 06:18] LABS: Magnesium, Blood 2.4 mg/dL (1.6-2.4)
[2020-02-15 06:19] LABS: Albumin, Blood 2.2 g/dL (3.4-5.0); Albumin/Globulin Ratio 0.7 (0.8-1.8); Bilirubin, Total 1.7 mg/dL (0.1-1.0); Bun/Creatinine Ratio 26.8 (12.0-20.0); Calcium, Blood 7.9 mg/dL (8.5-10.1); Creatinine, Blood 2.54 mg/dL (0.60-1.20); Globulin, Blood 3.2 g/dL (2.2-4.0); Potassium, Blood 3.6 mmol/L (3.5-5.5); Total Protein, Blood 5.4 g/dL (6.4-8.2)
[2020-02-15] MEDS ORDERED: ALBU90OI INH (11:37)
--- NOTE | 2020-02-15 13:29 | NUR ---
DISCHARGE SUMMARY PATIENT PLEASANT, ALERT AND ORIENTED. NO ACUTE CONCERNS AT THE TIME OF DISCHARGE. IVS REMOVED AND PATIENT DRESSED. WHEELED DOWN BY AID
[2020-02-17] MEDS ORDERED: ALBU90OI INH (17:04)
[2020-02-17] MEDS ORDERED: FLUT1DIS5 INH (17:04)
== END 2020-02-15 12:59 | disposition home or self-care (01) | DRG 378 ==
LOC: ER 13:52 → MEDS 17:41 → ICUW 17:41 → MEDS 02-13 15:54
PROVIDERS: Nurse Practitioner Acute Care; Physician Assistant; Student in an Organized Health Care Education/Training Program; ADMIT Family Medicine
PROC: 0D598ZZ Destruction of Duodenum, Via Natural or Artificial Opening Endoscopic (ICD-10-PCS; principal; 2020-02-13 12:15)
PROC: 30233N1 Transfusion of Nonautologous Red Blood Cells into Peripheral Vein, Percutaneous Approach (ICD-10-PCS; 2020-02-13 12:15)
DX: K55.21 Angiodysplasia of colon with hemorrhage (principal); N18.4 Chronic kidney disease, stage 4 (severe); I48.19 Other persistent atrial fibrillation; I13.0 Hypertensive heart and chronic kidney disease with heart failure and stage 1 through stage 4 chronic kidney disease, or unspecified chronic kidney disease; I50.42 Chronic combined systolic (congestive) and diastolic (congestive) heart failure; D62 Acute posthemorrhagic anemia; S09.90XA Unspecified injury of head, initial encounter; Z79.01 Long term (current) use of anticoagulants; M19.90 Unspecified osteoarthritis, unspecified site; I25.10 Atherosclerotic heart disease of native coronary artery without angina pectoris; E03.9 Hypothyroidism, unspecified; E11.22 Type 2 diabetes mellitus with diabetic chronic kidney disease; N40.0 Benign prostatic hyperplasia without lower urinary tract symptoms; Z96.652 Presence of left artificial knee joint; Z87.891 Personal history of nicotine dependence; E66.9 Obesity, unspecified; Z68.34 Body mass index [BMI] 34.0-34.9, adult; J44.9 Chronic obstructive pulmonary disease, unspecified; Z99.81 Dependence on supplemental oxygen; E11.21 Type 2 diabetes mellitus with diabetic nephropathy; G47.33 Obstructive sleep apnea (adult) (pediatric); I65.23 Occlusion and stenosis of bilateral carotid arteries; E78.5 Hyperlipidemia, unspecified; M10.9 Gout, unspecified; K31.819 Angiodysplasia of stomach and duodenum without bleeding; Z79.84 Long term (current) use of oral hypoglycemic drugs; W19.XXXA Unspecified fall, initial encounter
CPT/HCPCS: 36415; 36430; 70450; 71045; 72100; 72170; 78278; 80048; 80053; 81003; 82947; 83036; 83735; 83880; 84484; 85014; 85018; 85025; 85027; 85610; 86850; 86900; 86901; 86923; 93005; 93010; 94640; 94664; 94760; 94762; 96365; 99285-25; A9270-GY; A9560; C9113; G0480; J0171; J1940; J2370; J2704; J7030; P9016

== ENCOUNTER 2020-03-10 15:19 | Emergency (ER) | payer OTHER ==
[~2020-03-10] VITALS: Ht 190.5 cm; Wt 126.0 kg
[~2020-03-10 15:19] MED LIST changes: +ALLO100 PO; +ASMANEX HFA13 GM INH; +ATOR10 PO; +CALC.25 PO; +CALCITRATE200 MG PO; +CYCL10 PO; +DOCU100 PO; +FINA5 PO; +FLUT1DIS5 INH; +GENTEAL TEARS 015 ML BOTHEYES; +Glucosamine/Chondroi PO; +Imdur-ER60 MG PO; +NITR.4SL SL; +PANT20 PO; +POTA10T PO; +STIOLTO RESPIMAT4 GM INH; +TAMSULOSIN HCL0.4 MG PO
== END 2020-03-10 22:20 | disposition home or self-care (01) ==
LOC: ER 15:19
DX: D64.9 Anemia, unspecified (principal); I48.91 Unspecified atrial fibrillation; J44.9 Chronic obstructive pulmonary disease, unspecified; I25.10 Atherosclerotic heart disease of native coronary artery without angina pectoris; I50.9 Heart failure, unspecified; E11.22 Type 2 diabetes mellitus with diabetic chronic kidney disease; N18.4 Chronic kidney disease, stage 4 (severe); E11.40 Type 2 diabetes mellitus with diabetic neuropathy, unspecified; G47.30 Sleep apnea, unspecified; E03.9 Hypothyroidism, unspecified; K21.9 Gastro-esophageal reflux disease without esophagitis; Z87.891 Personal history of nicotine dependence; Z88.5 Allergy status to narcotic agent; Z91.018 Allergy to other foods; Z79.01 Long term (current) use of anticoagulants; Z79.899 Other long term (current) drug therapy
CPT/HCPCS: 36415; 36430; 86850; 86900; 86901; 86923; 99284-25; J7030; P9016

== ENCOUNTER 2020-05-07 08:00 | Day surgery (SDC) | payer OTHER ==
[~2020-05-07 08:00] MED LIST changes: +ARTIFICIAL TEAR15 M2 BOTHEYES; +Amoxicillin125 MG PO; +CALCITRATE200 M1 PO; -CALCITRATE200 MG PO; +FERROUSUL325 MG PO; +KLOR-CON M1010 MEQ PO; +METO5 PO; +MIDO5 PO; +STIOLTO RESPIMAT4 G1 INH; -STIOLTO RESPIMAT4 GM INH; +Synthroid200 MCG PO
--- NOTE | 2020-05-07 10:41 | NUR ---
PT C/O ITCHING ALL OVER. PT STATES NOTHING HELPS IT STOP BUT TOPICAL MEDICATION.
== END 2020-05-07 12:18 | disposition home or self-care (01) ==
LOC: ATC 08:00
DX: I13.0 Hypertensive heart and chronic kidney disease with heart failure and stage 1 through stage 4 chronic kidney disease, or unspecified chronic kidney disease (principal); E11.22 Type 2 diabetes mellitus with diabetic chronic kidney disease; I50.9 Heart failure, unspecified; J44.9 Chronic obstructive pulmonary disease, unspecified; D63.1 Anemia in chronic kidney disease; I48.91 Unspecified atrial fibrillation; Z79.01 Long term (current) use of anticoagulants; Z88.5 Allergy status to narcotic agent; Z79.84 Long term (current) use of oral hypoglycemic drugs; Z99.2 Dependence on renal dialysis; Z87.891 Personal history of nicotine dependence; Z79.899 Other long term (current) drug therapy; N18.9 Chronic kidney disease, unspecified
CPT/HCPCS: 36415; 36430; 86850; 86900; 86901; 86923; J7050; P9016; Q0163

== ENCOUNTER 2020-05-11 12:42 | Inpatient (IN) | payer OTHER ==
[~2020-05-11] VITALS: Ht 190.5 cm; Wt 133.0 kg
[2020-05-11 14:12] LABS: BASOPHILS PERCENT AUTO 1 % (0-2); EOSINOPHILS ABSOLUTE AUTO 0.31 K/mm3 (0.00-0.68); EOSINOPHILS PERCENT AUTO 4 % (0-6); Hematocrit 24.7 % (37.0-53.0); Hemoglobin 7.4 g/dL (13.5-17.5); IMMATURE GRAN ABSOLUTE AUTO 0.17 K/mm3 (0.00-0.10); IMMATURE GRAN PERCENT AUTO 2 % (0-1); LYMPHOCYTES ABSOLUTE AUTO 0.73 K/mm3 (0.84-5.20); LYMPHOCYTES PERCENT AUTO 8 % (21-46); MONOCYTES ABSOLUTE AUTO 0.56 K/mm3 (0.16-1.47); MONOCYTES PERCENT AUTO 6 % (4-13); Mean Corpuscular HGB 28.4 pg (26.0-34.0); Mean Corpuscular Volume 95 fL (80-100); Mean Platelet Volume 10.4 fL (9.1-12.4); NEUTROPHILS ABSOLUTE AUTO 6.96 K/mm3 (1.96-9.15); NEUTROPHILS PERCENT AUTO 79 % (41-73); NRBC ABSOLUTE 0.02 K/mm3 (0.00-0.02); NRBC Auto 0.2 /100 WBC (0.0-0.2); Platelet Count 230 K/mm3 (150-400); RDW Coefficient Variation 16.5 % (11.7-14.2); RDW Standard Deviation 55.9 fL (35.1-46.3); Red Blood Cell Count 2.61 M/mm3 (4.30-5.90); White Blood Cell Count 8.83 K/mm3 (4.00-11.30)
[2020-05-11 14:24] LABS: Albumin, Blood 1.6 g/dL (3.4-5.0); Albumin/Globulin Ratio 0.4 (0.8-1.8); Bilirubin, Total 0.9 mg/dL (0.1-1.0); Bun/Creatinine Ratio 26.5 (12.0-20.0); Calcium, Blood 7.5 mg/dL (8.5-10.1); Creatinine, Blood 2.94 mg/dL (0.60-1.20); Globulin, Blood 4.1 g/dL (2.2-4.0); Total Protein, Blood 5.7 g/dL (6.4-8.2)
[2020-05-11] MEDS ORDERED: ACET500 PO (19:27)
[2020-05-11] MEDS ORDERED: CEPH250A PO (19:30)
[2020-05-11] MEDS ORDERED: BENADRYL25 MG PO (19:32)
[2020-05-11] MEDS ORDERED: PANT20 PO (22:11)
--- NOTE | 2020-05-12 00:35 | NUR ---
05/11/202058 PT LYING IN BED, REPORTS PAIN IN R SHOULDER, BRUISE ON R SHOULDER. SCRAPE WITH SOME REDNESS ON R COLLAR BONE AREA. DR FEELS PT'S BP IS TOO LOW FOR PAIN MEDS JUST YET, PT IS AWARE. NO OTHER APPARENT SIGNS OF DISTRESS. CALL LIGHT IS IN REACH.
--- NOTE | 2020-05-12 00:37 | NUR ---
05/11/202216 PT'S BP STILL TOO LOW FOR PAIN MEDS, PT AWARE, FEELS LIKE THE PAIN HAS EASED UP AND IS OK FOR NOW. WILL CONT TO MONITOR. NO OTHE APPARENT SIGNS OF DISTRESS. CALL LIGHT IS IN REACH.
--- NOTE | 2020-05-12 00:39 | NUR ---
05/11/20 2320 PT REPORTED HEARTBURN AND REQUESTING SOMETHING FOR ITCHING AND SOMETHING FOR SLEEP. GOT EUCERIN CREAM, TUMS AND AMBIEN AND ADMINISTERED. WILL EVAL FOR EFFECT. NO OTHER APPARENT SIGNS OF DISTRESS. CALL LIGHT IS IN REACH.
--- NOTE | 2020-05-12 03:37 | NUR ---
PT IS AAO X 4, ON RA AT 98%. HAS R SHOULDER PAIN AND GROIN PAIN. HAD EDEMA IN LE'S AND IN GROIN. CELLULITIS IN GROIN. HAS A SCRAPE WITH REDNESS AROUND IT ON THE R COLLAR BONE AREA. PT DID NOT GET PAIN MEDICATION FOR HIS PAIN THE DR FELT HIS BP WAS TOO LOW. PT'S LAST BP WAS 101/66. BS WAS 154. SCD'S. PT WEARS HOME CPAP AT [facility], CONT BIOX WELL. PT DECLINED HEAT OR ICE TX FOR PAIN IT DID NOT WORK PREVIOUSLY. PT ALSO FELT HIS PAIN LET UP ENOUGH THAT HE WAS OK WITHOUT THE PAIN MEDICATION AND WAS VERY UNDERSTANDING OF WHY THE DR WAS WORRIED ABOUT GIVING IT. PT HAS MERRITT WITH CLEAR YELLOW URINE.
[2020-05-12 05:25] LABS: Hematocrit 23.6 % (37.0-53.0); Hemoglobin 7.1 g/dL (13.5-17.5); Mean Corpuscular HGB 28.6 pg (26.0-34.0); Mean Corpuscular HGB Conc 30.1 g/dL (31.5-36.5); Mean Corpuscular Volume 95 fL (80-100); Mean Platelet Volume 10.1 fL (9.1-12.4); NRBC ABSOLUTE 0.02 K/mm3 (0.00-0.02); NRBC Auto 0.3 /100 WBC (0.0-0.2); Platelet Count 204 K/mm3 (150-400); RDW Coefficient Variation 16.2 % (11.7-14.2); RDW Standard Deviation 56.8 fL (35.1-46.3); Red Blood Cell Count 2.48 M/mm3 (4.30-5.90); White Blood Cell Count 7.31 K/mm3 (4.00-11.30)
[2020-05-12 05:38] LABS: Albumin, Blood 1.4 g/dL (3.4-5.0); Anion Gap 5 mmol/L (6-16); Blood Urea Nitrogen 77 mg/dL (8-24); Bun/Creatinine Ratio 27.1 (12.0-20.0); CO2, Blood 29 mmol/L (21-32); Calcium, Blood 7.7 mg/dL (8.5-10.1); Chloride, Blood 104 mmol/L (98-108); Creatinine, Blood 2.84 mg/dL (0.60-1.20); Glomerular Filtration Rate 23 (60-); Glucose, Blood 102 mg/dL (70-99); Phosphorus, Blood 4.4 mg/dL (2.5-4.9); Potassium, Blood 3.9 mmol/L (3.5-5.5); Sodium, Blood 138 mmol/L (136-145)
--- NOTE | 2020-05-12 19:16 | NUR ---
SHIFT SUMMARY PATIENT IS ALERT AND ORIENTED THIS SHIFT. PATIENT REMAINS IN BED FOR MOST OF THIS SHIFT. PATIENT UP WITH 2 PERSON ASSIST THIS EVENING TO ADJUST BEDDING. PATIENT REMAINS FLUID OVERLOADED WITH 3+L OUTPUT WITH THE MERRITT CATHETER THIS SHIFT. PATIENT'S IN THE ROOM MUCH OF THIS SHIFT. PATIENT CURRENTLY SITTING UP IN BED WATCHING TELEVISION.
--- NOTE | 2020-05-13 04:47 | NUR ---
SHIFT SUMMARY PT DID NOT SLEEP WELL THIS EVENING. AWAKE THROUGH MUCH OF THE NIGHT. PT COMPLAINING OF FEELING ITCHY. BED BATH GIVEN, SKIN CLEANED AND DRIED WELL AND LOTION APPLIED. PT REPORTS IMPROVEMENT. PT EDEMATOUS THROUGHOUT LOWER EXTREMETIES AND INTO LOWER ABD. SCROTUM AND PENIS VERY SWOLLEN AND UNCOMFORTABLE. ELEVATED SROTUM WITH TOWEL AND ICE PACK. PT WORE HOME CPAP. O2 SATS STABLE THROUGH THE NIGHT. PT DENIES ANY SOB. MERRITT CATHETER PATENT AND DRAINING. GOOD OUTPUT THIS EVENING. VITAL SIGNS STABLE. WILL CONTINUE TO MONITOR AND REPORT TO DAY RN.
[2020-05-13 05:03] LABS: Hematocrit 23.1 % (37.0-53.0); Hemoglobin 7.1 g/dL (13.5-17.5); Mean Corpuscular HGB 28.4 pg (26.0-34.0); Mean Corpuscular HGB Conc 30.7 g/dL (31.5-36.5); Mean Corpuscular Volume 92 fL (80-100); Mean Platelet Volume 9.9 fL (9.1-12.4); Platelet Count 193 K/mm3 (150-400); RDW Coefficient Variation 16.3 % (11.7-14.2); RDW Standard Deviation 55.4 fL (35.1-46.3); White Blood Cell Count 8.71 K/mm3 (4.00-11.30)
[2020-05-13 05:24] LABS: Bun/Creatinine Ratio 25.8 (12.0-20.0); Calcium, Blood 7.9 mg/dL (8.5-10.1); Creatinine, Blood 3.02 mg/dL (0.60-1.20); Potassium, Blood 3.6 mmol/L (3.5-5.5)
[2020-05-13 17:00] LABS: BASOPHILS ABSOLUTE AUTO 0.09 K/mm3 (0.00-0.23); BASOPHILS PERCENT AUTO 1 % (0-2); EOSINOPHILS ABSOLUTE AUTO 0.47 K/mm3 (0.00-0.68); EOSINOPHILS PERCENT AUTO 6 % (0-6); Hematocrit 25.2 % (37.0-53.0); Hemoglobin 7.8 g/dL (13.5-17.5); IMMATURE GRAN ABSOLUTE AUTO 0.08 K/mm3 (0.00-0.10); IMMATURE GRAN PERCENT AUTO 1 % (0-1); LYMPHOCYTES PERCENT AUTO 12 % (21-46); MONOCYTES ABSOLUTE AUTO 0.66 K/mm3 (0.16-1.47); MONOCYTES PERCENT AUTO 8 % (4-13); Mean Corpuscular HGB 28.6 pg (26.0-34.0); Mean Corpuscular Volume 92 fL (80-100); Mean Platelet Volume 10.1 fL (9.1-12.4); NEUTROPHILS ABSOLUTE AUTO 6.21 K/mm3 (1.96-9.15); NEUTROPHILS PERCENT AUTO 73 % (41-73); NRBC ABSOLUTE 0.02 K/mm3 (0.00-0.02); NRBC Auto 0.2 /100 WBC (0.0-0.2); Platelet Count 204 K/mm3 (150-400); RDW Coefficient Variation 16.2 % (11.7-14.2); RDW Standard Deviation 54.3 fL (35.1-46.3); Red Blood Cell Count 2.73 M/mm3 (4.30-5.90); White Blood Cell Count 8.51 K/mm3 (4.00-11.30)
[2020-05-13 17:20] LABS: Albumin, Blood 1.8 g/dL (3.4-5.0); Albumin/Globulin Ratio 0.4 (0.8-1.8); Bilirubin, Total 1.4 mg/dL (0.1-1.0); Bun/Creatinine Ratio 27.2 (12.0-20.0); Calcium, Blood 8.1 mg/dL (8.5-10.1); Creatinine, Blood 2.83 mg/dL (0.60-1.20); Globulin, Blood 4.3 g/dL (2.2-4.0); Potassium, Blood 3.4 mmol/L (3.5-5.5); Total Protein, Blood 6.1 g/dL (6.4-8.2)
--- NOTE | 2020-05-13 17:55 | NUR ---
PT IS 79 YO MALE, WHO WAS ADMITTED FOR BLOOD LOSS ANEMIA. PT IS AOX4, ABLE TO MAKE NEEDS KNOWN. 18G LA, NO TELE, ROOM AIR. 1 UNIT OF BLOOD GIVEN, PT TOLERATED WELL. HGB FROM 7.1 TO NOW 7.8 AFTER BLOOD ADMINISTRATED. PT COMPLAIN OF FEELING ITCHY, MEDICATER PER EMAR, SKIN CLEANED, DRY WELL, AND LOTION APPLIED. PENIS AND SCROPTUM STILL VERY SWOLLEN AND EDEMATOUS. ELEVATED AND ICE PACK. MERRITT CATH IN PLACED AND PATENT, GOOD OUTPUT THIS SHIFT. PT REFUSED PHYSICAL THERAPY TODAY, NEED ENCOURAGEMENT. NPO AT MIDNIGHT FOR MEDIPORT PLACEMENT TOMORROW. CALL LIGHT WIHTIN REACH, BED IN THE LOWEST POSITION. WILL CONTINUE MONITOR UNTIL NEXT SHIFT.
[2020-05-14 05:03] LABS: Albumin, Blood 1.8 g/dL (3.4-5.0); Anion Gap 7 mmol/L (6-16); Blood Urea Nitrogen 74 mg/dL (8-24); Bun/Creatinine Ratio 24.4 (12.0-20.0); CO2, Blood 34 mmol/L (21-32); Chloride, Blood 95 mmol/L (98-108); Creatinine, Blood 3.03 mg/dL (0.60-1.20); Glomerular Filtration Rate 21 (60-); Glucose, Blood 120 mg/dL (70-99); Potassium, Blood 3.4 mmol/L (3.5-5.5); Sodium, Blood 136 mmol/L (136-145)
--- NOTE | 2020-05-14 05:11 | NUR ---
SHIFT SUMMARY PT DID NOT SLEEP WELL THIS EVENING. AWAKE MUCH OF THE NIGHT, FALLING ASLEEP AT APPROX 0400. PT CONTINUED TO REPORT FEELING ITCHY. MEDICATED W/ BENADRYL. ALSO APPLIED LOTION TO SKIN. PT HAS BEEN NPO SINCE MIDNIGHT FOR METAPORT PLACEMENT TODAY. PT CONTINUES TO HAVE EDEMA 2-3+ TO BLE'S. MORE SEVERE IN BILATERAL FEET AND SCROTUM. SCROTUM ELEVATED AND ICE PACK APPLIED. PT REMAINED IN BED THROUGHOUT THE NIGHT. REPOSITIONED NEEDED. OTHERWISE NO ACUTE CHANGES THIS SHIFT. WILL CONTINUE TO MONITOR AND REPORT TO DAY RN.
--- NOTE | 2020-05-14 14:54 | NUR ---
INTO SDS VIA GURN FROM [facility]. History, Chart, Medications and Allergies reviewed before start of procedure.Patient confirms NPO status and agrees with scheduled surgery. Surgical site prepped with 2% Chlorhexidine cloth wipe. Lungs clear T/O to Auscultation. AT BEDSIDE. ARMBAND FOR NO IV OR BP ON LEFT ARM PLACED DUE TO FISTULA PLACEMENT.
--- NOTE | 2020-05-14 15:55 | NUR ---
05/14/20 1555 Deirdre Maldonado PT ON ORAL ANTIBIOTIC. KEFLEX
--- NOTE | 2020-05-14 17:33 | NUR ---
SHIFT SUMMARY PATIENT ALERT AND ORIENTED THIS SHIFT. PATIENT CONTINUES ON LASIX WITH MERRITT CATHETER IN PLACE TO MONITOR OUTPUT. PATIENT CONTINUES TO HAVE SIGNIFICANT AMOUNT OF CLEAR YELLOW URINE OUTPUT. PATIENT NPO THIS AM IN PREPARATION FOR PROCEDURE. PATIENT TO OR THIS AFTERNOON FOR MEDIPORT PLACEMENT. PATIENT BACK TO ROOM WITHOUT COMPLAINTS OF PAIN OR DISCOMFORT. PATIENT'S SPOUSE AT BEDSIDE THROUGHOUT THIS SHIFT. PATIENT CURRENTLY LAYING IN BED WATCHING TELEVISION.
--- NOTE | 2020-05-15 04:29 | NUR ---
[place] HELPER SUMMARY PT WAS PLEASANT AND COOPERATIVE THROUGHOUT THE NIGHT. PT ASLEEP MOST OF THE SHIFT. PT ON CPAP W 3L O2 AND CONTINUOUS BIOX. PT MAINTAINED >90 O2 THROUGHOUT THE NIGHT EXCEPT FOR ONE EPISODE WHEN THE CPAP MASK SLID TO THE SIDE OF HIS FACE AND HIS O2 DROPPED INTO THE LOW 80'S, MASK WAS FIXED AND O2 AGAIN >90. ICE PACK AND BARRIER CREAM WAS APPLIED TO PT'S SCROTUM FOR SWELLING AND SKIN BREAKDOWN. PT REPORTED NO NEW SYMPTOMS AND IS CURRENTLY RESTING WITH ELSINORE ZOEY HENDRICKS.
[2020-05-15 04:55] LABS: BASOPHILS ABSOLUTE AUTO 0.03 K/mm3 (0.00-0.23); BASOPHILS PERCENT AUTO 0 % (0-2); EOSINOPHILS ABSOLUTE AUTO 0.01 K/mm3 (0.00-0.68); EOSINOPHILS PERCENT AUTO 0 % (0-6); Hematocrit 23.6 % (37.0-53.0); Hemoglobin 7.2 g/dL (13.5-17.5); IMMATURE GRAN ABSOLUTE AUTO 0.08 K/mm3 (0.00-0.10); IMMATURE GRAN PERCENT AUTO 1 % (0-1); LYMPHOCYTES ABSOLUTE AUTO 0.44 K/mm3 (0.84-5.20); LYMPHOCYTES PERCENT AUTO 6 % (21-46); MONOCYTES ABSOLUTE AUTO 0.34 K/mm3 (0.16-1.47); MONOCYTES PERCENT AUTO 5 % (4-13); Mean Corpuscular HGB 28.1 pg (26.0-34.0); Mean Corpuscular HGB Conc 30.5 g/dL (31.5-36.5); Mean Corpuscular Volume 92 fL (80-100); NEUTROPHILS ABSOLUTE AUTO 6.65 K/mm3 (1.96-9.15); NEUTROPHILS PERCENT AUTO 88 % (41-73); Platelet Count 178 K/mm3 (150-400); RDW Coefficient Variation 15.6 % (11.7-14.2); RDW Standard Deviation 52.3 fL (35.1-46.3); Red Blood Cell Count 2.56 M/mm3 (4.30-5.90); White Blood Cell Count 7.55 K/mm3 (4.00-11.30)
[2020-05-15 05:30] LABS: Anion Gap 6 mmol/L (6-16); Blood Urea Nitrogen 78 mg/dL (8-24); Bun/Creatinine Ratio 26.4 (12.0-20.0); CO2, Blood 37 mmol/L (21-32); Calcium, Blood 7.8 mg/dL (8.5-10.1); Chloride, Blood 94 mmol/L (98-108); Creatinine, Blood 2.95 mg/dL (0.60-1.20); Glomerular Filtration Rate 22 (60-); Glucose, Blood 171 mg/dL (70-99); Magnesium, Blood 2.3 mg/dL (1.6-2.4); Phosphorus, Blood 5.4 mg/dL (2.5-4.9); Potassium, Blood 4.3 mmol/L (3.5-5.5); Sodium, Blood 137 mmol/L (136-145)
[2020-05-15] MEDS ORDERED: DOCU100 PO (12:03)
[2020-05-15] MEDS ORDERED: TORSE20 PO (12:08)
--- NOTE | 2020-05-15 16:24 | NUR ---
REVIEW D'C. NO RX'S NEEDED PATIENT STS ALREADY HAS THEM AFTER REVIEW. AWARE NEEDS V.A. APPT. [facility] SITE COVERED W/TEGADERM. GETS TRANSFUSIONS TWO TIMES A WEEK. AWARE TO KEEP NEW [facility] C/D. ANSWER ALL QUESTIONS. IN HOME ELECTRIC W/C W/S.O. 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
== END 2020-05-15 16:47 | disposition home or self-care (01) | DRG 699 ==
LOC: ER 12:42 → MEDS 17:05 → ENPENDDIS 05-15 11:14 → MEDS 05-15 16:47
PROVIDERS: Internal Medicine; Physician Assistant; Surgery; ADMIT Internal Medicine
PROC: B514ZZA Fluoroscopy of Left Jugular Veins, Guidance (ICD-10-PCS; 2020-05-14)
PROC: 30233N1 Transfusion of Nonautologous Red Blood Cells into Peripheral Vein, Percutaneous Approach (ICD-10-PCS; 2020-05-14)
PROC: 05HN33Z Insertion of Infusion Device into Left Internal Jugular Vein, Percutaneous Approach (ICD-10-PCS; principal; 2020-05-14 14:15)
DX: N04.9 Nephrotic syndrome with unspecified morphologic changes (principal); I48.20 Chronic atrial fibrillation, unspecified; I13.0 Hypertensive heart and chronic kidney disease with heart failure and stage 1 through stage 4 chronic kidney disease, or unspecified chronic kidney disease; I50.42 Chronic combined systolic (congestive) and diastolic (congestive) heart failure; J96.11 Chronic respiratory failure with hypoxia; K92.2 Gastrointestinal hemorrhage, unspecified; Q27.30 Arteriovenous malformation, site unspecified; E87.70 Fluid overload, unspecified; N18.4 Chronic kidney disease, stage 4 (severe); E11.22 Type 2 diabetes mellitus with diabetic chronic kidney disease; Z99.2 Dependence on renal dialysis; D50.0 Iron deficiency anemia secondary to blood loss (chronic); E03.9 Hypothyroidism, unspecified; E66.01 Morbid (severe) obesity due to excess calories; E78.5 Hyperlipidemia, unspecified; G47.33 Obstructive sleep apnea (adult) (pediatric); I25.10 Atherosclerotic heart disease of native coronary artery without angina pectoris; I25.2 Old myocardial infarction; I34.0 Nonrheumatic mitral (valve) insufficiency; G62.9 Polyneuropathy, unspecified; J44.9 Chronic obstructive pulmonary disease, unspecified; Z87.891 Personal history of nicotine dependence; Z87.01 Personal history of pneumonia (recurrent); W19.XXXA Unspecified fall, initial encounter; Z68.36 Body mass index [BMI] 36.0-36.9, adult; E88.09 Other disorders of plasma-protein metabolism, not elsewhere classified; Z99.3 Dependence on wheelchair; K74.60 Unspecified cirrhosis of liver; N50.89 Other specified disorders of the male genital organs
CPT/HCPCS: 36415; 36430; 51702; 71045; 73030; 77001; 80048; 80053; 80069; 82947; 83735; 83880; 85025; 85027; 86850; 86900; 86901; 86923; 94640; 94760; 94762; 96374-59; 97112; 97162; 99285-25; A9270; A9270-GY; C1788; J1100; J1200; J1642; J1940; J2405; J2704; J3010; J7030; J7050; P9016; P9041; U0002

== ENCOUNTER 2020-05-24 14:02 | Observation (INO) | payer OTHER ==
[~2020-05-24] VITALS: Ht 190.5 cm; Wt 120.2 kg
[~2020-05-24 14:02] MED LIST changes: +ACET500 PO; +BENADRYL25 MG PO; +CEPH250A PO
[2020-05-24 14:58] LABS: BASOPHILS ABSOLUTE AUTO 0.04 K/mm3 (0.00-0.23); BASOPHILS PERCENT AUTO 0 % (0-2); EOSINOPHILS ABSOLUTE AUTO 0.16 K/mm3 (0.00-0.68); EOSINOPHILS PERCENT AUTO 2 % (0-6); IMMATURE GRAN ABSOLUTE AUTO 0.12 K/mm3 (0.00-0.10); IMMATURE GRAN PERCENT AUTO 1 % (0-1); LYMPHOCYTES PERCENT AUTO 5 % (21-46); MONOCYTES ABSOLUTE AUTO 0.64 K/mm3 (0.16-1.47); MONOCYTES PERCENT AUTO 6 % (4-13); Mean Corpuscular HGB 29.2 pg (26.0-34.0); Mean Corpuscular HGB Conc 31.1 g/dL (31.5-36.5); Mean Corpuscular Volume 94 fL (80-100); Mean Platelet Volume 10.1 fL (9.1-12.4); NEUTROPHILS ABSOLUTE AUTO 8.86 K/mm3 (1.96-9.15); NEUTROPHILS PERCENT AUTO 86 % (41-73); NRBC ABSOLUTE 0.03 K/mm3 (0.00-0.02); NRBC Auto 0.3 /100 WBC (0.0-0.2); Platelet Count 180 K/mm3 (150-400); RDW Coefficient Variation 16.7 % (11.7-14.2); RDW Standard Deviation 55.3 fL (35.1-46.3); Red Blood Cell Count 1.78 M/mm3 (4.30-5.90); White Blood Cell Count 10.32 K/mm3 (4.00-11.30)
[2020-05-24 15:10] LABS: Hematocrit 16.7 % (37.0-53.0); Hemoglobin 5.2 g/dL (13.5-17.5)
[2020-05-24 15:33] LABS: Albumin, Blood 1.9 g/dL (3.4-5.0); Albumin/Globulin Ratio 0.4 (0.8-1.8); Bilirubin, Total 1.1 mg/dL (0.1-1.0); Bun/Creatinine Ratio 35.6 (12.0-20.0); Creatinine, Blood 3.06 mg/dL (0.60-1.20); Globulin, Blood 4.3 g/dL (2.2-4.0); Potassium, Blood 4.2 mmol/L (3.5-5.5); Total Protein, Blood 6.2 g/dL (6.4-8.2); Troponin I 0.054 ng/mL (0.000-0.040)
--- NOTE | 2020-05-24 17:09 | NUR ---
PT ARRIVED TO PCU 13 VIA GURNEY FROM ED, REPORT FROM JIM, PT PULLED OVER TO BED, A/OX3, COOPERATIVE WITH CARE, FOLLOWS COMMANDS WELL, DENIES PAIN, LUNGS ARE SLIGHTLY COURSE, DIM IN BASES, RESP EVEN AND UNLABORED, NO COUGH NOTED, HRR, TELE IN PLACE RUNNING AFIB 93BPM, 3-4+ EDEMA NOTED TO B/L LE, CAP REFILL < 3SEC, VS STABLE, AFEBRILE, IV SITE IS MEDIPORT INFUSING PRBC, BTX4, ABD FLAT SOFT NONTENDER, IS TENDER TO LEFT FLANK, HE REPORTS FROM A FALL, SKIN IS PALE, INTACT, DANIEL DAWKINS, CALL LIGHT IN REACH.
[2020-05-25 01:30] LABS: BASOPHILS ABSOLUTE AUTO 0.07 K/mm3 (0.00-0.23); BASOPHILS PERCENT AUTO 1 % (0-2); EOSINOPHILS ABSOLUTE AUTO 0.42 K/mm3 (0.00-0.68); EOSINOPHILS PERCENT AUTO 4 % (0-6); Hematocrit 20.1 % (37.0-53.0); Hemoglobin 6.5 g/dL (13.5-17.5); IMMATURE GRAN ABSOLUTE AUTO 0.14 K/mm3 (0.00-0.10); IMMATURE GRAN PERCENT AUTO 1 % (0-1); LYMPHOCYTES ABSOLUTE AUTO 1.09 K/mm3 (0.84-5.20); LYMPHOCYTES PERCENT AUTO 11 % (21-46); MONOCYTES ABSOLUTE AUTO 0.85 K/mm3 (0.16-1.47); MONOCYTES PERCENT AUTO 8 % (4-13); Mean Corpuscular HGB 29.4 pg (26.0-34.0); Mean Corpuscular HGB Conc 32.3 g/dL (31.5-36.5); Mean Corpuscular Volume 91 fL (80-100); Mean Platelet Volume 10.3 fL (9.1-12.4); NEUTROPHILS ABSOLUTE AUTO 7.56 K/mm3 (1.96-9.15); NEUTROPHILS PERCENT AUTO 75 % (41-73); NRBC ABSOLUTE 0.04 K/mm3 (0.00-0.02); NRBC Auto 0.4 /100 WBC (0.0-0.2); Platelet Count 207 K/mm3 (150-400); RDW Coefficient Variation 16.5 % (11.7-14.2); RDW Standard Deviation 53.2 fL (35.1-46.3); Red Blood Cell Count 2.21 M/mm3 (4.30-5.90); White Blood Cell Count 10.13 K/mm3 (4.00-11.30)
[2020-05-25 01:44] LABS: Bun/Creatinine Ratio 34.4 (12.0-20.0); Calcium, Blood 7.8 mg/dL (8.5-10.1); Creatinine, Blood 3.2 mg/dL (0.60-1.20); Potassium, Blood 3.9 mmol/L (3.5-5.5)
[2020-05-25 05:43] LABS: Source, Urine Catheter
[2020-05-25 05:45] LABS: Appearance, Urine Clear (Clear); Bilirubin, Urine Neg (Neg); Blood, Urine Neg (Neg); Color, Urine Yellow (P-Yellow); Glucose Qualitative, Urine Neg (Neg); Ketones, Urine Neg (Neg); Leukocyte Esterase, Urine Neg (Neg); Nitrite, Urine Neg (Neg); Protein, Urine Neg (Neg); Specific Gravity, Urine 1.015 (1.003-1.022); Urobilinogen, Urine NORM (Normal)
--- NOTE | 2020-05-25 07:55 | NUR ---
END OF SHIFT SUMMARY NO ACUTE CHANGES THIS. PT HAS RECEIVED A TOTAL OF 3PRBC'S NOW. AWAITING NEXT HGB. PT'S BP OFF AND ON HOTN BUT MAP REMAINS >65. PT ASYMPTOMATIC TO THIS. CONTINUE TO C/O L "RIB" PAIN. FLEXERIL HELPFUL FOR THIS. CHRONIC MERRITT NOTED, CHANGED THIS SHIFT. UA SENT TO LAB. ORDERS RECEIVED TO ALLOW ACCESS OF MEDIPORT AND TO DRAW BLOOD. UNAWARE IF THIS IS A STANDARD OR POWERPORT AT THIS TIME. PT TURNING WITH STAFF. HAS NOT SLEPT MUCH THIS SHIFTPER REPORT. WILL CONTINUE TO MONITOR UNTIL SHIFT CHANGE.
--- NOTE | 2020-05-25 08:07 | NUR ---
MERRITT CHRONIC MERRITT PRESENT UPON SHIFT START. PER REPORT/PT, CHRONIC MERRITT NOT CHANGED IN ED. CORPORATE PILOT ONTAINED URINE SPECIMEN FROM CATHETER. SENT TO LAB. CHRONIC MERRITT CHANGED AT 0550 05/25/2020. SEE INSERTION.
[2020-05-25 10:00] LABS: Hematocrit 21.7 % (37.0-53.0); Hemoglobin 7.2 g/dL (13.5-17.5)
[2020-05-25] MEDS ORDERED: TRAM50 PO (15:58)
--- NOTE | 2020-05-25 18:43 | NUR ---
DISCHARGE SUMMARY PT A&Ox3; ANXIOUS BUT COOPERATIVE WITH CARE. PT RESTING IN BED DURING SHIFT. ASSIST WITH REPOSITION IN BED. PT REPORTS LEFT SIDED RIB PAIN AND BILATERAL SHOULDER PAIN, ICED/HEATING APPLIED; MEDICATED WITH TYLENOL AND TRAMADOL WITH POSITIVE RESULTS. PT DENIES CHEST PAIN, NAUSEA AND DIZZINESS T/O SHIFT. SOB THIS AFTENROON; STATES HE HAS O2 AT HOME FOR ACTIVITY; PLACED O2 AND PT REMOVED WHEN SOB PASSED; SPO2 >92% T/O SHIFT. PT COMPLETED 3RD BLOOD TRANSFUSION THIS AM AND H&H DRAWN 1 HOUR AFTER COMPLETED. NOTIIFED DR CADET OF RESULTS. PT SPOUSE EXPRESSED CONCERN REGARDED ELEVATED TROP; NOTIFIED DR BUSH NEW ORDERS TO CHECK TROP. NO OTHER ACUTE CHANGES NOTED DUIRNG SHIFT. PT EDUCATED ON DISCHARGE INSTRUCTIONS, FOLLOW UP APPOINTMENT AND MEDICATIONS. PHYSICAL PRESCRIPTION FOR TRAMADOL GIVEN TO SPOUSE. PT LEFT ROOM VIA HOME WHEELCHAIR. PT PLANS TO HAVE LAB DRAWN ON SUNDAY OUTPATIENT AND FOLLOW UP WITH PCP.
== END 2020-05-25 18:26 | disposition home or self-care (01) ==
LOC: ER 14:02 → PCU 14:03
PROVIDERS: Emergency Medicine; Family Medicine; ADMIT Hospitalist
DX: D50.0 Iron deficiency anemia secondary to blood loss (chronic) (principal); E86.1 Hypovolemia; Q27.33 Arteriovenous malformation of digestive system vessel; E11.22 Type 2 diabetes mellitus with diabetic chronic kidney disease; I48.20 Chronic atrial fibrillation, unspecified; I13.0 Hypertensive heart and chronic kidney disease with heart failure and stage 1 through stage 4 chronic kidney disease, or unspecified chronic kidney disease; I50.42 Chronic combined systolic (congestive) and diastolic (congestive) heart failure; N18.4 Chronic kidney disease, stage 4 (severe); J44.9 Chronic obstructive pulmonary disease, unspecified; E03.9 Hypothyroidism, unspecified; W19.XXXA Unspecified fall, initial encounter; Z79.4 Long term (current) use of insulin; Z88.5 Allergy status to narcotic agent; Z79.899 Other long term (current) drug therapy; Z79.84 Long term (current) use of oral hypoglycemic drugs; E11.42 Type 2 diabetes mellitus with diabetic polyneuropathy; E78.5 Hyperlipidemia, unspecified; Z99.2 Dependence on renal dialysis; Z87.891 Personal history of nicotine dependence
CPT/HCPCS: 36430; 70450; 71045; 80048; 80053; 81003; 84484; 85014; 85018; 85025; 86850; 86900; 86901; 86923; 93005; 93010; 94640; 94762; 96374; 99285-25; A9270; C9113; G0378; J1200; J1642; J7030; P9016

== ENCOUNTER 2020-05-27 09:07 | Day surgery (SDC) | payer OTHER ==
[2020-05-26 16:20] LABS: BASOPHILS ABSOLUTE AUTO 0.07 K/mm3 (0.00-0.23); BASOPHILS PERCENT AUTO 1 % (0-2); EOSINOPHILS ABSOLUTE AUTO 0.39 K/mm3 (0.00-0.68); EOSINOPHILS PERCENT AUTO 4 % (0-6); Hemoglobin 7.1 g/dL (13.5-17.5); IMMATURE GRAN ABSOLUTE AUTO 0.14 K/mm3 (0.00-0.10); IMMATURE GRAN PERCENT AUTO 2 % (0-1); LYMPHOCYTES ABSOLUTE AUTO 0.65 K/mm3 (0.84-5.20); LYMPHOCYTES PERCENT AUTO 7 % (21-46); MONOCYTES ABSOLUTE AUTO 0.65 K/mm3 (0.16-1.47); MONOCYTES PERCENT AUTO 7 % (4-13); Mean Corpuscular HGB 29.3 pg (26.0-34.0); Mean Corpuscular HGB Conc 32.3 g/dL (31.5-36.5); Mean Corpuscular Volume 91 fL (80-100); Mean Platelet Volume 9.9 fL (9.1-12.4); NEUTROPHILS ABSOLUTE AUTO 7.62 K/mm3 (1.96-9.15); NEUTROPHILS PERCENT AUTO 80 % (41-73); NRBC ABSOLUTE 0.03 K/mm3 (0.00-0.02); NRBC Auto 0.3 /100 WBC (0.0-0.2); Platelet Count 229 K/mm3 (150-400); RDW Coefficient Variation 16.1 % (11.7-14.2); Red Blood Cell Count 2.42 M/mm3 (4.30-5.90); White Blood Cell Count 9.52 K/mm3 (4.00-11.30)
[~2020-05-27 09:07] MED LIST changes: +TRAM50 PO
== END 2020-05-27 16:45 | disposition home or self-care (01) ==
LOC: ATC 09:07
PROVIDERS: Internal Medicine Hematology & Oncology
DX: I12.9 Hypertensive chronic kidney disease with stage 1 through stage 4 chronic kidney disease, or unspecified chronic kidney disease (principal); E11.22 Type 2 diabetes mellitus with diabetic chronic kidney disease; N18.4 Chronic kidney disease, stage 4 (severe); D63.1 Anemia in chronic kidney disease; Z87.891 Personal history of nicotine dependence; K74.60 Unspecified cirrhosis of liver; Z79.899 Other long term (current) drug therapy; J44.9 Chronic obstructive pulmonary disease, unspecified; Z99.2 Dependence on renal dialysis; E03.9 Hypothyroidism, unspecified; Z79.84 Long term (current) use of oral hypoglycemic drugs; Z88.5 Allergy status to narcotic agent; Z79.01 Long term (current) use of anticoagulants
CPT/HCPCS: 36430; 36591; 85025; 86850; 86900; 86901; 86923; J1642; J7050; P9016

== ENCOUNTER 2020-06-04 00:27 | Day surgery (SDC) | payer OTHER ==
[2020-06-01 14:17] LABS: BASOPHILS ABSOLUTE AUTO 0.07 K/mm3 (0.00-0.23); BASOPHILS PERCENT AUTO 1 % (0-2); EOSINOPHILS ABSOLUTE AUTO 0.27 K/mm3 (0.00-0.68); EOSINOPHILS PERCENT AUTO 3 % (0-6); Hematocrit 25.5 % (37.0-53.0); Hemoglobin 7.9 g/dL (13.5-17.5); IMMATURE GRAN ABSOLUTE AUTO 0.06 K/mm3 (0.00-0.10); IMMATURE GRAN PERCENT AUTO 1 % (0-1); LYMPHOCYTES PERCENT AUTO 6 % (21-46); MONOCYTES ABSOLUTE AUTO 0.59 K/mm3 (0.16-1.47); MONOCYTES PERCENT AUTO 7 % (4-13); Mean Corpuscular HGB 28.4 pg (26.0-34.0); Mean Corpuscular Volume 92 fL (80-100); Mean Platelet Volume 10.2 fL (9.1-12.4); NEUTROPHILS ABSOLUTE AUTO 7.08 K/mm3 (1.96-9.15); NEUTROPHILS PERCENT AUTO 83 % (41-73); Platelet Count 233 K/mm3 (150-400); RDW Coefficient Variation 14.9 % (11.7-14.2); RDW Standard Deviation 49.9 fL (35.1-46.3); Red Blood Cell Count 2.78 M/mm3 (4.30-5.90); White Blood Cell Count 8.57 K/mm3 (4.00-11.30)
[2020-06-01 14:35] LABS: Albumin, Blood 1.7 g/dL (3.4-5.0); Anion Gap 8 mmol/L (6-16); Blood Urea Nitrogen 101 mg/dL (8-24); Bun/Creatinine Ratio 30.7 (12.0-20.0); CO2, Blood 26 mmol/L (21-32); Calcium, Blood 7.4 mg/dL (8.5-10.1); Chloride, Blood 101 mmol/L (98-108); Creatinine, Blood 3.29 mg/dL (0.60-1.20); Glomerular Filtration Rate 19 (60-); Glucose, Blood 136 mg/dL (70-99); Phosphorus, Blood 5.4 mg/dL (2.5-4.9); Potassium, Blood 3.8 mmol/L (3.5-5.5); Sodium, Blood 135 mmol/L (136-145)
== END 2020-06-04 11:28 | disposition home or self-care (01) ==
LOC: ATC 00:27
PROVIDERS: Internal Medicine; Internal Medicine Hematology & Oncology
DX: I12.9 Hypertensive chronic kidney disease with stage 1 through stage 4 chronic kidney disease, or unspecified chronic kidney disease (principal); N18.4 Chronic kidney disease, stage 4 (severe); D63.1 Anemia in chronic kidney disease; I48.91 Unspecified atrial fibrillation; Z87.891 Personal history of nicotine dependence; Z88.5 Allergy status to narcotic agent; J44.9 Chronic obstructive pulmonary disease, unspecified; E03.9 Hypothyroidism, unspecified
CPT/HCPCS: 36430; 36591; 80069; 83970; 85025; 86850; 86900; 86901; 86923; J1642; J7050; P9016

== ENCOUNTER 2020-06-11 00:44 | Day surgery (SDC) | payer OTHER ==
[2020-06-10 15:17] LABS: BASOPHILS ABSOLUTE AUTO 0.04 K/mm3 (0.00-0.23); BASOPHILS PERCENT AUTO 1 % (0-2); EOSINOPHILS ABSOLUTE AUTO 0.25 K/mm3 (0.00-0.68); EOSINOPHILS PERCENT AUTO 3 % (0-6); Hematocrit 22.6 % (37.0-53.0); Hemoglobin 7.2 g/dL (13.5-17.5); IMMATURE GRAN ABSOLUTE AUTO 0.04 K/mm3 (0.00-0.10); IMMATURE GRAN PERCENT AUTO 1 % (0-1); LYMPHOCYTES ABSOLUTE AUTO 0.62 K/mm3 (0.84-5.20); LYMPHOCYTES PERCENT AUTO 7 % (21-46); MONOCYTES ABSOLUTE AUTO 0.47 K/mm3 (0.16-1.47); MONOCYTES PERCENT AUTO 6 % (4-13); Mean Corpuscular HGB 29.1 pg (26.0-34.0); Mean Corpuscular HGB Conc 31.9 g/dL (31.5-36.5); Mean Corpuscular Volume 92 fL (80-100); Mean Platelet Volume 10.1 fL (9.1-12.4); NEUTROPHILS ABSOLUTE AUTO 6.91 K/mm3 (1.96-9.15); NEUTROPHILS PERCENT AUTO 83 % (41-73); Platelet Count 177 K/mm3 (150-400); RDW Coefficient Variation 15.5 % (11.7-14.2); RDW Standard Deviation 51.4 fL (35.1-46.3); Red Blood Cell Count 2.47 M/mm3 (4.30-5.90); White Blood Cell Count 8.33 K/mm3 (4.00-11.30)
--- NOTE | 2020-06-11 10:03 | NUR ---
CALL TO DR. LANIER OFFICE TO INFORM HIM OF PT'S LOW BP. I ALSO INFORMED HIM OF THE LUNG SOUNDS WITH NEW CRACKLES IN BASES. RECEIVED NEW ORDER FOR LASIX 20MG IV.
[2020-06-11] MEDS ORDERED: METO25ER PO (10:25)
[2020-06-11] MEDS ORDERED: TORSE20 PO (10:26)
[2020-06-11] MEDS ORDERED: STRIVERDI RESPIM4 G1 INH (10:27)
[2020-06-11] MEDS ORDERED: DULERA 200 MCG-13 GM INH (10:27)
== END 2020-06-11 12:05 | disposition home or self-care (01) ==
LOC: ATC 00:44
PROVIDERS: Internal Medicine Hematology & Oncology
DX: I12.9 Hypertensive chronic kidney disease with stage 1 through stage 4 chronic kidney disease, or unspecified chronic kidney disease (principal); N18.4 Chronic kidney disease, stage 4 (severe); D63.1 Anemia in chronic kidney disease; J44.9 Chronic obstructive pulmonary disease, unspecified; K21.9 Gastro-esophageal reflux disease without esophagitis; E03.9 Hypothyroidism, unspecified; Z88.5 Allergy status to narcotic agent; Z87.891 Personal history of nicotine dependence; Z79.899 Other long term (current) drug therapy; Z79.01 Long term (current) use of anticoagulants
CPT/HCPCS: 36430; 36591; 85025; 86850; 86900; 86901; 86923; 96374; J1642; J1940; J7050; P9016

== ENCOUNTER 2020-06-15 07:22 | Day surgery (SDC) | payer OTHER ==
--- NOTE | 2020-06-03 16:24 | NUR ---
PT NOT SEEN IN CLINIC TODAY.
[2020-06-14 14:21] LABS: BASOPHILS ABSOLUTE AUTO 0.05 K/mm3 (0.00-0.23); BASOPHILS PERCENT AUTO 1 % (0-2); EOSINOPHILS ABSOLUTE AUTO 0.27 K/mm3 (0.00-0.68); EOSINOPHILS PERCENT AUTO 3 % (0-6); Hematocrit 23.1 % (37.0-53.0); Hemoglobin 7.3 g/dL (13.5-17.5); IMMATURE GRAN ABSOLUTE AUTO 0.05 K/mm3 (0.00-0.10); IMMATURE GRAN PERCENT AUTO 1 % (0-1); LYMPHOCYTES ABSOLUTE AUTO 0.51 K/mm3 (0.84-5.20); LYMPHOCYTES PERCENT AUTO 6 % (21-46); MONOCYTES ABSOLUTE AUTO 0.68 K/mm3 (0.16-1.47); MONOCYTES PERCENT AUTO 8 % (4-13); Mean Corpuscular HGB 28.6 pg (26.0-34.0); Mean Corpuscular HGB Conc 31.6 g/dL (31.5-36.5); Mean Corpuscular Volume 91 fL (80-100); Mean Platelet Volume 10.1 fL (9.1-12.4); NEUTROPHILS ABSOLUTE AUTO 6.98 K/mm3 (1.96-9.15); NEUTROPHILS PERCENT AUTO 82 % (41-73); NRBC ABSOLUTE 0.02 K/mm3 (0.00-0.02); NRBC Auto 0.2 /100 WBC (0.0-0.2); Platelet Count 198 K/mm3 (150-400); RDW Coefficient Variation 15.8 % (11.7-14.2); RDW Standard Deviation 51.2 fL (35.1-46.3); Red Blood Cell Count 2.55 M/mm3 (4.30-5.90); White Blood Cell Count 8.54 K/mm3 (4.00-11.30)
[2020-06-14 14:35] LABS: Albumin, Blood 1.7 g/dL (3.4-5.0); Anion Gap 9 mmol/L (6-16); Blood Urea Nitrogen 110 mg/dL (8-24); CO2, Blood 30 mmol/L (21-32); Calcium, Blood 7.7 mg/dL (8.5-10.1); Chloride, Blood 92 mmol/L (98-108); Creatinine, Blood 2.62 mg/dL (0.60-1.20); Glomerular Filtration Rate 25 (60-); Glucose, Blood 172 mg/dL (70-99); Phosphorus, Blood 4.6 mg/dL (2.5-4.9); Potassium, Blood 3.1 mmol/L (3.5-5.5); Sodium, Blood 131 mmol/L (136-145)
[~2020-06-15 07:22] MED LIST changes: -TRAZ50 PO
--- NOTE | 2020-06-15 12:08 | NUR ---
NOTIFIED DR SALINAS RE PT BP. INSTRUCTED PT AND HIS SPOUSE TO TAKE AN EXTRA MIDODRINE AT HOME. PT IS TO GO TO ER IF NEW SYMPTOMS PRESENT. PT'S SPOUSE VERBALIZED UNDERSTANDING.
== END 2020-06-15 22:45 | disposition home or self-care (01) ==
LOC: ATC 07:22
PROVIDERS: Internal Medicine; Internal Medicine Hematology & Oncology
DX: I12.9 Hypertensive chronic kidney disease with stage 1 through stage 4 chronic kidney disease, or unspecified chronic kidney disease (principal); N18.4 Chronic kidney disease, stage 4 (severe); D63.1 Anemia in chronic kidney disease; K74.60 Unspecified cirrhosis of liver; J44.9 Chronic obstructive pulmonary disease, unspecified; E03.9 Hypothyroidism, unspecified; Z88.5 Allergy status to narcotic agent; Z87.891 Personal history of nicotine dependence; Z79.899 Other long term (current) drug therapy; Z79.01 Long term (current) use of anticoagulants
CPT/HCPCS: 36430; 36591; 80069; 85025; 86850; 86900; 86901; 86923; J1642; J7050; P9016

== ENCOUNTER → 2020-06-15 | Outpatient (CLI) | payer OTHER ==
[~2020-06-15] MED LIST changes: +DULERA 200 MCG-13 GM INH; +STRIVERDI RESPIM4 G1 INH; +TRAZ50 PO
[2020-06-15 12:45] LABS: Bilirubin, Urine Neg (Neg); Blood, Urine 2+ (Neg); Glucose Qualitative, Urine Neg (Neg); Ketones, Urine Neg (Neg); Leukocyte Esterase, Urine 2+ (Neg); Nitrite, Urine Pos (Neg); Protein, Urine Neg (Neg); Specific Gravity, Urine 1.015 (1.003-1.022); Urobilinogen, Urine NORM (Normal)
[2020-06-15 13:09] LABS: Appearance, Urine Clear (Clear); Color, Urine Yellow (P-Yellow)
[2020-06-15 13:10] LABS: Bacteria Many /hpf; Squamous Epithelial Cells Not Seen /hpf (Few); White Blood Cells, Urine TNTC /hpf (0-5)
== END | disposition home or self-care (01) ==
LOC: LAB SHORT 09:45 → LAB 09:45
PROVIDERS: Internal Medicine
DX: R35.0 Frequency of micturition (principal)
CPT/HCPCS: 81001; 87077; 87086; 87186

== ENCOUNTER 2020-06-17 00:44 | Day surgery (SDC) | payer OTHER ==
[2020-06-17 11:01] LABS: BASOPHILS ABSOLUTE AUTO 0.04 K/mm3 (0.00-0.23); BASOPHILS PERCENT AUTO 1 % (0-2); EOSINOPHILS ABSOLUTE AUTO 0.11 K/mm3 (0.00-0.68); EOSINOPHILS PERCENT AUTO 2 % (0-6); Hematocrit 29.7 % (37.0-53.0); Hemoglobin 9.7 g/dL (13.5-17.5); IMMATURE GRAN ABSOLUTE AUTO 0.04 K/mm3 (0.00-0.10); IMMATURE GRAN PERCENT AUTO 1 % (0-1); LYMPHOCYTES ABSOLUTE AUTO 0.39 K/mm3 (0.84-5.20); LYMPHOCYTES PERCENT AUTO 5 % (21-46); MONOCYTES ABSOLUTE AUTO 0.45 K/mm3 (0.16-1.47); MONOCYTES PERCENT AUTO 6 % (4-13); Mean Corpuscular HGB 29.1 pg (26.0-34.0); Mean Corpuscular HGB Conc 32.7 g/dL (31.5-36.5); Mean Corpuscular Volume 89 fL (80-100); NEUTROPHILS ABSOLUTE AUTO 6.16 K/mm3 (1.96-9.15); NEUTROPHILS PERCENT AUTO 86 % (41-73); NRBC ABSOLUTE 0.02 K/mm3 (0.00-0.02); NRBC Auto 0.3 /100 WBC (0.0-0.2); Platelet Count 196 K/mm3 (150-400); RDW Coefficient Variation 15.9 % (11.7-14.2); RDW Standard Deviation 50.9 fL (35.1-46.3); Red Blood Cell Count 3.33 M/mm3 (4.30-5.90); White Blood Cell Count 7.19 K/mm3 (4.00-11.30)
[2020-06-17 11:19] LABS: Albumin, Blood 1.7 g/dL (3.4-5.0); Albumin/Globulin Ratio 0.4 (0.8-1.8); Bun/Creatinine Ratio 41.1 (12.0-20.0); Calcium, Blood 7.2 mg/dL (8.5-10.1); Creatinine, Blood 2.99 mg/dL (0.60-1.20); Globulin, Blood 4.1 g/dL (2.2-4.0); Potassium, Blood 3.6 mmol/L (3.5-5.5); Total Protein, Blood 5.8 g/dL (6.4-8.2)
== END 2020-06-17 11:00 | disposition home or self-care (01) ==
LOC: ATC 00:44
PROVIDERS: Internal Medicine Hematology & Oncology
DX: I13.0 Hypertensive heart and chronic kidney disease with heart failure and stage 1 through stage 4 chronic kidney disease, or unspecified chronic kidney disease (principal); E11.22 Type 2 diabetes mellitus with diabetic chronic kidney disease; N18.4 Chronic kidney disease, stage 4 (severe); D63.1 Anemia in chronic kidney disease; K74.60 Unspecified cirrhosis of liver; J44.9 Chronic obstructive pulmonary disease, unspecified; E03.9 Hypothyroidism, unspecified; K21.9 Gastro-esophageal reflux disease without esophagitis; Z99.2 Dependence on renal dialysis; Z88.8 Allergy status to other drugs, medicaments and biological substances; Z87.891 Personal history of nicotine dependence; Z79.899 Other long term (current) drug therapy; Z79.84 Long term (current) use of oral hypoglycemic drugs
CPT/HCPCS: 36591; 80053; 85025; J1642

== ENCOUNTER 2020-06-18 11:26 | Day surgery (SDC) | payer OTHER ==
[~2020-06-18] VITALS: Ht 190.5 cm; Wt 120.5 kg
--- NOTE | 2020-06-18 12:45 | NUR ---
06/18/20 Debi Andersen PT ARRIVED WITH MEDIPORT ACCESSED PREVIOUSLY. CHARGE NURSE NOTIFIED. RN ATTACHED FLUIDS TO PT'S ACCESSED [facility]IPORT[facility]
--- NOTE | 2020-06-18 14:10 | NUR ---
06/18/20 1410 Elaine Hurst PATIENT C/O NAUSEA. MEDICATED PER ORDERS. VSS. PATIENT VERY DROWSY, AT SIDE. IS CONCERNED THAT PATIENT IS VERY SLEEPY AND THAT HE MAY FALL WHEN TRYING TO GET FROM THE CAR TO THEIR HOUSE. RN WILL CONTINUE TO MONITOR PATIENT AND DISCHARGE WHEN PATIENT IS MORE ALERT.
== END 2020-06-18 15:15 | disposition home or self-care (01) ==
LOC: ORSCSDS 11:26
PROVIDERS: Internal Medicine Gastroenterology
PROC: 0W3P8ZZ Control Bleeding in Gastrointestinal Tract, Via Natural or Artificial Opening Endoscopic (ICD-10-PCS; principal; 2020-06-18 12:45)
DX: D50.9 Iron deficiency anemia, unspecified (principal); K31.811 Angiodysplasia of stomach and duodenum with bleeding; J44.9 Chronic obstructive pulmonary disease, unspecified; I25.10 Atherosclerotic heart disease of native coronary artery without angina pectoris; N18.4 Chronic kidney disease, stage 4 (severe); E66.9 Obesity, unspecified; Z68.37 Body mass index [BMI] 37.0-37.9, adult; G47.33 Obstructive sleep apnea (adult) (pediatric); Z79.899 Other long term (current) drug therapy
CPT/HCPCS: 82947; J1642; J2001; J2250; J2370; J2405; J2704; J7030; J7120

== ENCOUNTER 2020-06-22 09:34 | Day surgery (SDC) | payer OTHER ==
[2020-06-21 13:49] LABS: BASOPHILS ABSOLUTE AUTO 0.05 K/mm3 (0.00-0.23); BASOPHILS PERCENT AUTO 1 % (0-2); EOSINOPHILS ABSOLUTE AUTO 0.18 K/mm3 (0.00-0.68); EOSINOPHILS PERCENT AUTO 2 % (0-6); Hematocrit 23.4 % (37.0-53.0); Hemoglobin 7.6 g/dL (13.5-17.5); IMMATURE GRAN ABSOLUTE AUTO 0.11 K/mm3 (0.00-0.10); IMMATURE GRAN PERCENT AUTO 1 % (0-1); LYMPHOCYTES ABSOLUTE AUTO 0.34 K/mm3 (0.84-5.20); LYMPHOCYTES PERCENT AUTO 4 % (21-46); MONOCYTES ABSOLUTE AUTO 0.61 K/mm3 (0.16-1.47); MONOCYTES PERCENT AUTO 7 % (4-13); Mean Corpuscular HGB 29.6 pg (26.0-34.0); Mean Corpuscular HGB Conc 32.5 g/dL (31.5-36.5); Mean Corpuscular Volume 91 fL (80-100); Mean Platelet Volume 9.4 fL (9.1-12.4); NEUTROPHILS ABSOLUTE AUTO 7.16 K/mm3 (1.96-9.15); NEUTROPHILS PERCENT AUTO 85 % (41-73); NRBC ABSOLUTE 0.02 K/mm3 (0.00-0.02); NRBC Auto 0.2 /100 WBC (0.0-0.2); Platelet Count 241 K/mm3 (150-400); RDW Coefficient Variation 16.2 % (11.7-14.2); RDW Standard Deviation 52.5 fL (35.1-46.3); Red Blood Cell Count 2.57 M/mm3 (4.30-5.90); White Blood Cell Count 8.45 K/mm3 (4.00-11.30)
[2020-06-21 14:12] LABS: Albumin, Blood 1.6 g/dL (3.4-5.0); Albumin/Globulin Ratio 0.4 (0.8-1.8); Bilirubin, Total 0.8 mg/dL (0.1-1.0); Bun/Creatinine Ratio 40.9 (12.0-20.0); Calcium, Blood 7.6 mg/dL (8.5-10.1); Creatinine, Blood 3.03 mg/dL (0.60-1.20); Total Protein, Blood 5.6 g/dL (6.4-8.2)
--- NOTE | 2020-06-22 13:44 | NUR ---
BLOOD TRANSFUSION: PT IS AT 94 TO 96 PERCENT ON RA AT THIS TIME
== END 2020-06-22 17:06 ==
LOC: ATC 09:34
PROVIDERS: Internal Medicine Hematology & Oncology
DX: I12.9 Hypertensive chronic kidney disease with stage 1 through stage 4 chronic kidney disease, or unspecified chronic kidney disease (principal); N18.4 Chronic kidney disease, stage 4 (severe); D63.1 Anemia in chronic kidney disease; Z88.5 Allergy status to narcotic agent; Z87.891 Personal history of nicotine dependence; Z79.899 Other long term (current) drug therapy; Z79.01 Long term (current) use of anticoagulants; J44.9 Chronic obstructive pulmonary disease, unspecified; E03.9 Hypothyroidism, unspecified; K21.9 Gastro-esophageal reflux disease without esophagitis
CPT/HCPCS: 80053; 85025; 86850; 86900; 86901; 86923; J1642; J7050; P9016

== ENCOUNTER 2020-06-24 00:02 | Day surgery (SDC) | payer OTHER | END 2020-06-24 13:57 | disposition home or self-care (01) | LOC: ATC 00:02 | DX: I12.9 Hypertensive chronic kidney disease with stage 1 through stage 4 chronic kidney disease, or unspecified chronic kidney disease (principal); E11.22 Type 2 diabetes mellitus with diabetic chronic kidney disease; N18.4 Chronic kidney disease, stage 4 (severe); D63.1 Anemia in chronic kidney disease; J44.9 Chronic obstructive pulmonary disease, unspecified; K21.9 Gastro-esophageal reflux disease without esophagitis; Z88.5 Allergy status to narcotic agent; Z87.891 Personal history of nicotine dependence; Z79.899 Other long term (current) drug therapy; Z79.01 Long term (current) use of anticoagulants; Z79.84 Long term (current) use of oral hypoglycemic drugs ==

== ENCOUNTER 2020-06-25 09:25 | Day surgery (SDC) | payer OTHER | END 2020-06-25 13:50 | disposition home or self-care (01) | LOC: ATC 09:25 | DX: I12.9 Hypertensive chronic kidney disease with stage 1 through stage 4 chronic kidney disease, or unspecified chronic kidney disease (principal); N18.4 Chronic kidney disease, stage 4 (severe); D63.1 Anemia in chronic kidney disease; Z87.891 Personal history of nicotine dependence; Z88.5 Allergy status to narcotic agent; K74.60 Unspecified cirrhosis of liver; I48.91 Unspecified atrial fibrillation; Z79.899 Other long term (current) drug therapy; J44.9 Chronic obstructive pulmonary disease, unspecified; K21.9 Gastro-esophageal reflux disease without esophagitis ==

== ENCOUNTER 2020-06-28 00:15 | Day surgery (SDC) | payer OTHER ==
[~2020-06-28 00:15] MED LIST changes: +TRAZ50 PO
[2020-06-28 15:04] LABS: BASOPHILS ABSOLUTE AUTO 0.06 K/mm3 (0.00-0.23); BASOPHILS PERCENT AUTO 1 % (0-2); EOSINOPHILS ABSOLUTE AUTO 0.17 K/mm3 (0.00-0.68); EOSINOPHILS PERCENT AUTO 2 % (0-6); Hematocrit 25.6 % (37.0-53.0); Hemoglobin 8.2 g/dL (13.5-17.5); IMMATURE GRAN ABSOLUTE AUTO 0.08 K/mm3 (0.00-0.10); IMMATURE GRAN PERCENT AUTO 1 % (0-1); LYMPHOCYTES ABSOLUTE AUTO 0.58 K/mm3 (0.84-5.20); LYMPHOCYTES PERCENT AUTO 6 % (21-46); MONOCYTES ABSOLUTE AUTO 0.63 K/mm3 (0.16-1.47); MONOCYTES PERCENT AUTO 7 % (4-13); Mean Corpuscular HGB 29.5 pg (26.0-34.0); Mean Corpuscular Volume 92 fL (80-100); Mean Platelet Volume 9.7 fL (9.1-12.4); NEUTROPHILS ABSOLUTE AUTO 7.96 K/mm3 (1.96-9.15); NEUTROPHILS PERCENT AUTO 84 % (41-73); NRBC ABSOLUTE 0.02 K/mm3 (0.00-0.02); NRBC Auto 0.2 /100 WBC (0.0-0.2); Platelet Count 181 K/mm3 (150-400); RDW Coefficient Variation 16.7 % (11.7-14.2); RDW Standard Deviation 55.8 fL (35.1-46.3); Red Blood Cell Count 2.78 M/mm3 (4.30-5.90); White Blood Cell Count 9.48 K/mm3 (4.00-11.30)
[2020-06-28 15:26] LABS: Albumin, Blood 1.8 g/dL (3.4-5.0); Anion Gap 5 mmol/L (6-16); Blood Urea Nitrogen 99 mg/dL (8-24); Bun/Creatinine Ratio 44.2 (12.0-20.0); CO2, Blood 32 mmol/L (21-32); Calcium, Blood 7.7 mg/dL (8.5-10.1); Chloride, Blood 93 mmol/L (98-108); Creatinine, Blood 2.24 mg/dL (0.60-1.20); Glomerular Filtration Rate 30 (60-); Glucose, Blood 168 mg/dL (70-99); Phosphorus, Blood 3.5 mg/dL (2.5-4.9); Potassium, Blood 4.4 mmol/L (3.5-5.5); Sodium, Blood 130 mmol/L (136-145)
[2020-07-01] MEDS ORDERED: METO25ER PO (13:46)
== END 2020-06-28 14:35 | disposition home or self-care (01) ==
LOC: ATC 00:15
PROVIDERS: Internal Medicine Hematology & Oncology
DX: I12.9 Hypertensive chronic kidney disease with stage 1 through stage 4 chronic kidney disease, or unspecified chronic kidney disease (principal); N18.4 Chronic kidney disease, stage 4 (severe); J44.9 Chronic obstructive pulmonary disease, unspecified; D63.1 Anemia in chronic kidney disease; Z87.891 Personal history of nicotine dependence; Z88.5 Allergy status to narcotic agent; Z79.899 Other long term (current) drug therapy; K74.60 Unspecified cirrhosis of liver; E03.9 Hypothyroidism, unspecified; Z79.01 Long term (current) use of anticoagulants
CPT/HCPCS: 36591; 80069; 85025; J1642

== ENCOUNTER 2020-07-02 07:28 | Day surgery (SDC) | payer OTHER ==
[2020-07-01 14:34] LABS: BASOPHILS ABSOLUTE AUTO 0.05 K/mm3 (0.00-0.23); BASOPHILS PERCENT AUTO 1 % (0-2); EOSINOPHILS ABSOLUTE AUTO 0.26 K/mm3 (0.00-0.68); EOSINOPHILS PERCENT AUTO 3 % (0-6); Hematocrit 23.7 % (37.0-53.0); Hemoglobin 7.5 g/dL (13.5-17.5); IMMATURE GRAN ABSOLUTE AUTO 0.08 K/mm3 (0.00-0.10); IMMATURE GRAN PERCENT AUTO 1 % (0-1); LYMPHOCYTES ABSOLUTE AUTO 0.66 K/mm3 (0.84-5.20); LYMPHOCYTES PERCENT AUTO 7 % (21-46); MONOCYTES ABSOLUTE AUTO 0.66 K/mm3 (0.16-1.47); MONOCYTES PERCENT AUTO 7 % (4-13); Mean Corpuscular HGB 29.4 pg (26.0-34.0); Mean Corpuscular HGB Conc 31.6 g/dL (31.5-36.5); Mean Corpuscular Volume 93 fL (80-100); Mean Platelet Volume 10.5 fL (9.1-12.4); NEUTROPHILS ABSOLUTE AUTO 8.33 K/mm3 (1.96-9.15); NEUTROPHILS PERCENT AUTO 83 % (41-73); Platelet Count 160 K/mm3 (150-400); RDW Coefficient Variation 16.8 % (11.7-14.2); RDW Standard Deviation 56.7 fL (35.1-46.3); Red Blood Cell Count 2.55 M/mm3 (4.30-5.90); White Blood Cell Count 10.04 K/mm3 (4.00-11.30)
== END 2020-07-02 17:06 | disposition home or self-care (01) ==
LOC: ATC 07:28
PROVIDERS: Internal Medicine Hematology & Oncology
DX: N18.4 Chronic kidney disease, stage 4 (severe) (principal); D63.1 Anemia in chronic kidney disease; Z88.5 Allergy status to narcotic agent
CPT/HCPCS: 36430; 36591; 85025; 86850; 86900; 86901; 86923; J1642; J7050; P9016

== ENCOUNTER 2020-07-03 14:59 | Emergency (ER) | payer OTHER ==
[~2020-07-03] VITALS: Ht 190.5 cm; Wt 124.7 kg
[2020-07-03 15:15] LABS: Calcium, Ionized (POC) 0.88 mmol/L (1.10-1.46); Chloride (POC) 95 mmol/L (98-108); Glucose (ISTAT POC) 172 mg/dL (70-99); Hemoglobin (POC) 9.2 g/dL (13.5-17.5); Sodium (POC) 126 mmol/L (135-148); Total CO2 (POC) 20 mmol/L (21-32)
== END 2020-07-03 21:30 ==
LOC: ER 14:59
PROVIDERS: Emergency Medicine
DX: I46.9 Cardiac arrest, cause unspecified (principal); I48.91 Unspecified atrial fibrillation; J44.9 Chronic obstructive pulmonary disease, unspecified; I25.10 Atherosclerotic heart disease of native coronary artery without angina pectoris; I13.0 Hypertensive heart and chronic kidney disease with heart failure and stage 1 through stage 4 chronic kidney disease, or unspecified chronic kidney disease; I50.9 Heart failure, unspecified; N18.4 Chronic kidney disease, stage 4 (severe); E11.22 Type 2 diabetes mellitus with diabetic chronic kidney disease; E03.9 Hypothyroidism, unspecified; K21.9 Gastro-esophageal reflux disease without esophagitis; Z87.891 Personal history of nicotine dependence; Z79.899 Other long term (current) drug therapy; Z88.3 Allergy status to other anti-infective agents; Z88.5 Allergy status to narcotic agent; Z79.51 Long term (current) use of inhaled steroids; Z79.84 Long term (current) use of oral hypoglycemic drugs
CPT/HCPCS: 36680; 80047; 85014; 94770; 96374-59; 96375-59; 99285-25; J0171; J2354; J7030